=== PATIENT | female | born 1940 | race Caucasian/White ===

== ENCOUNTER 2016-10-01 20:34 | Inpatient (IN) | payer MEDICARE ==
[~2016-10-01] VITALS: Ht 167.6 cm; Wt 70.0 kg
--- NOTE | 2016-10-01 21:04 | ED.REPORT ---
HPI-General Illness Date of Service October 01, 2016 ED Provider: Dom Mascorro MD Pt is a 75 y.o. female who presents to the ED via EMS with rapid palpitations .EMS rhythm strips recorded episodes of A-fib with RVR in the 200's and short bradycardic episodes in the 30's. Pt was asymptomatic when she had rapid heart rate but during her bradycardic episodes she reports near syncope that she describes as "greying out" and hot flashes. Pt was seen at [place] ED on Tuesday ( 09/27) for chest pain, the source for her pain was not identified. Pt denies a hx of A-fib. Nursing Notes Stated Complaint: AFIB WITH RVR Nursing Notes Reviewed: Yes Allergies: Coded Allergies: No Known Allergies (Unverified , 10/01/16) Scheduled Aspirin (Aspirin) 325 Mg Tablet 325 MG PO PRN Cholecalciferol (Vitamin D3) (Vitamin D) 1,000 Unit Tablet Unknown Dose PO DAILY Cyanocobalamin (Vitamin B-12) (Vitamin B-12) 2,000 Mcg Tablet 2,000 MCG PO DAILY Ranitidine (Ranitidine) 75 Mg Tablet 150 MG PO DAILY General Time Seen by MD: 21:04 Chief Complaint Other (Rapid Palpitations) Hx Obtained From: Patient, EMS Arrived By: Ambulance Sudden in Onset?: Yes Onset Occurred: Just prior to arrival Symptom Duration: Since onset Severity: Current: No pain currently Severity: Maximum: No pain Past Medical History Past Medical History None reported Past Surgical History Reports: Appendectomy Social History Alcohol Use: "Social" Ambulatory Status Independent Review of Systems Hot flashes Tachycardia Bradycardia Full Review of Systems Cardiovascular: Reports: Palpitations (Rapid) Neurologic: Reports: Syncope (Near) Complete sys rev & neg: except as marked. Physical Exam Vital Signs Vital Signs Date Time Temp Pulse Resp B/P Pulse Ox O2 Delivery O2 Flow Rate FiO2 10/01/16 21:22 36.5 138 20 158/72 98 Room Air Initial VS: Reviewed Head / Eyes: Atraumatic, Normocephalic Abdomen / GI: No distention Extremities: Vascular intact, Neuro intact Skin: Warm, Dry, No cyanosis Neurologic: Alert, Oriented, Nonfocal Psychiatric: Mood/affect normal, Behavior normal, Normal thought content General/Constitutional: Awake, Alert, Well appearing, Well developed, Well hydrated, Well nourished, Not toxic appearing Respiratory / Chest: Atraumatic, Breath sounds NL, Breath sounds = bilat, No respiratory distress Heart Rate / Rhythm: Positive: Bradycardia (30's), Irreg irregular rhythm, Tachycardia (200's) Trace lower extremity edema Interpretation & Diagnostics Lab Results Interpretation Result Diagram: 10/02/16 0204 10/02/16 0204 Test 10/01/16 21:50 10/01/16 22:10 Erythrocyte Sedimentation Rate 41mm/hr (0-40) D-Dimer 1.02mg/L FEU (<0.50) Uric Acid 6.4mg/dL (2.6-7.2) Magnesium Level 2.1mg/dL (1.6-2.6) Total Bilirubin 0.4mg/dL (0.0-1.2) Aspartate Amino Transf (AST/SGOT) 18U/L (0-50) Alanine Aminotransferase (ALT/SGPT) 19U/L (0-32) Alkaline Phosphatase 95U/L (25-165) Troponin T 0.010ug/L (0.0-0.011) Pro-B-Type Natriuretic Peptide 612.4pg/mL (0-738) Total Protein 7.2g/dL (6.4-8.4) Albumin 3.8g/dL (3.4-5.0) Thyroid Stimulating Hormone (TSH) 1.780uIU/mL (0.450-4.500) Free Thyroxine 1.52ng/dL (0.82-1.77) Hold Bello Top Tube Received (Received) ECG Interpretation Time: 09:35 Interpreted by: ED physician Rhythm / Conduction: Atrial fib with RVR (rate of 141) Time: 09:37 Interpreted by: ED physician Abnormal Rate: 40 (46) Rhythm / Conduction: Atrial fibrillation (Slow) X-Ray Chest Interpretation Chest Xray Interpretation: IMPRESSION: Increased left basilar opacification system with pneumonia versus atelectasis. Small left-sided effusion. Dictated by: Marlin Allen MD, PhD on 10/01/2016 at 21:48 Approved by: Marlin Allen MD, PhD on 10/01/2016 at 21:49 Re-Eval/Medical Decision Med Decision/Clinical Course 75-year-old no prior cardiac history presents with rapid A. fib and then bradycardic A. fib episodes with pauses up to thirty seconds. These positive been progressive since she has been here, and she is on no current sounding drugs to suppress note function. We are unable to control her rapid rate in the 200s, given her tendency to severe bradycardia and pauses. Discussed with cardiology will see tonbrent. She was taken to the [facility] after a negative CT angiogram to exclude pulmonary embolus. A temporary pacer was placed. She is transported in critical condition first to the [facility] and thence to the CCU. Source of Hx: Old records Time of Eval: 21:14 Re-Evaluation/Progress Note: Discussed with pt need for admit and probable pacemaker insertion. Pt understands and agrees with plan. Consultation #1: Referral / Consult Name: Dio Phipps MD Consulted With: Cardiology Call Returned at: 21:15 Note: Consulted Dr. Phipps regarding pt condition, recommends admit. Does not recommend emergent pacemaker insertion. Consultation #2: Referral / Consult Name: Elvis Russell MD Consulted With: Hospitalist Call Returned at: 21:53 House Mover Helper: Accepts admit Note: Discussed pt condition and consult with Dr. Phipps. Accepts admit. Counseled Regarding: Diagnosis, Lab results, Need for follow-up, Need for admission Discharge & Departure Primary Impression: Sick sinus syndrome with tachycardia Additional Impression: Atrial fibrillation with RVR Disposition: ADMITTED TO HOSPITAL Discharge Condition All VS Reviewed: Yes Condition: Critical Crit Care Except Billable Proc Time Spent: 30-74 minutes (sixty minutes) Services Performed: Patient management by me, Time spent at bedside, Reviewing test results, Reviewing imaging, Discussing patient care, Documentation in record, Time with fam/surrogate Scribe Attestation Portions of this note were transcribed by Lucy Atkins. I, Dr. Mascorro personally performed the history, physical exam and medical decision-making; I reviewed and confirmed the accuracy of the information in the transcribed note. Signed by: Daniel Harrell, 10/01/16 and 223 Dom Mascorro MD October 01, 2016 21:04 LUCY ATKINS October 01, 2016 21:21
[2016-10-01 21:22] VITALS: BP 158/72; PULSE 138; RESP 20; O2SAT 98
--- NOTE | 2016-10-01 21:51 | DRSVH ---
PROCEDURE: X-RAY CHEST ONE VIEW, PORTABLE ([id number]) INDICATIONS: tachycardia TECHNIQUE: One view of the chest was acquired. COMPARISON: None. FINDINGS: Surgical changes and devices: None. Lungs and pleura: Small left-sided pleural fluid collection noted. Increased opacification of the l eft lung base which represent atelectasis versus pneumonia. Mediastinum: Mediastinal contours appear normal. Heart size is normal. Bones and chest wall: No suspicious bony lesions. Overlying soft tissues appear unremarkable. IMPRESSION: Increased left basilar opacification system with pneumonia versus atelectasis. Small le ft-sided effusion. Dictated by: Marlin Allen MD, PhD on 10/01/2016 at 21:48 Approved by: Marlin Allen MD, PhD on 10/01/2016 at 21:49
[2016-10-01 22:02] LABS: BASOPHILS % (AUTO) 0.2 % (0-3); EOSINOPHILS % (AUTO) 0.9 % (0-5); MONOCYTES % (AUTO) 9.3 % (4-12); Mean Corpuscular Hemoglobin 27.9 pg (27.0-35.0); Mean Corpuscular Volume 82.2 fL (81-100); NEUTROPHILS % (AUTO) 65.3 % (40-74); Platelet Count 325 bil/L (150-400)
[2016-10-01 22:25] LABS: ERYTHROCYTE SEDIMENTATION RATE 41 mm/hr (0-40)
[2016-10-01 22:29] LABS: TROPONIN T 0.01 ug/L (0.0-0.011)
[2016-10-01 22:47] LABS: Magnesium 2.1 mg/dL (1.6-2.6)
[2016-10-01] MEDS ORDERED: Alum-Mag Hydrox-Simeth 30 mL Suspension PO PRN (22:50)
[2016-10-01] MEDS ORDERED: Polyethylene Glycol (PEG) 17 Gm Powder PO PRN (22:50)
[2016-10-01] MEDS ORDERED: Ondansetron 2 mg/mL 2 mL Inj IVPUSH PRN (22:50)
[2016-10-01] MEDS ORDERED: Senna-Docusate 8.6-50 mg Tablet PO PRN (22:50)
[2016-10-01] MEDS ORDERED: Heparin 5,000 Units/500 mL NS Premix IV ONE (23:01)
[2016-10-01 23:02] VITALS: BP 164/76; PULSE 141; RESP 18; O2SAT 97
--- NOTE | 2016-10-01 23:47 | PCM.HPMED ---
Subjective Date of Service October 01, 2016 Primary Provider: Admitting Physician: Elvis Russell MD Primary Care Physician: Adal Arias MD Attending Physician: Elvis Russell MD Admit Status: From the Emergency Department, Critical Care Chief Complaint: Chest pain History of Present Illness: Pt is a 75 y.o. female who presents to the ED via EMS with rapid palpitations, onset this evening. EMS rhythm strips recorded episodes of A-fib with RVR in the 200's and short bradycardic episodes in the 30's. Pt was asymptomatic when she had rapid heart rate but during her bradycardic episodes she reports near syncope that she describes as "greying out" and hot flashes. Pt was seen at [facility] ED on Tuesday (09/27) for chest pain, the source for her pain was not identified. Patient states she has had occasional pain chest pain, which she attributed to her reflux symptoms. Patient denies hx of A-fib. In the ED vitals temperature 36.5 pulse 136 respiratory 20 blood pressure 158/ 72 98% on room air. D-dimer 1.02. All other labs within normal range. CXR showed some mild evidence of pneumonia with small left-sided effusion. ECG in ED showed atrial fibrillation with RVR at rate of 141, 2 minutes later atrial fibrillation with rate of 40. Patient relapsing into bradycardia every 2-3 mins. Patient was seen by Dr. Phipps the on-call academic administrator, patient to go to CT angiogram to rule out PE, then to the Room Attendant to receives temporary pacemaker tonight, with plans to replace it with permanent pacemaker on Tuesday. Patient admitted for further treatment and management. Review of Systems: GEN: Hot flashes Cardiovascular: Palpitations (Rapid), slow heart beat Neurologic: Reports: Syncope (Near) Complete sys rev & neg: except as marked. Allergies Coded Allergies: No Known Allergies (Unverified , 10/01/16) Home Medications Patient takes no prescribed medication at this time PMH None reported Surgical History Appendectomy Laparoscopic hysterectomy Family History Mother and father with diabetes Mother with congestive heart failure in her 80s Social History Occupation: retired Hx Alcohol Use: Yes (occasional) Hx Substance Use: No Living Arrangement: Alone Exam Vital Signs Vital Sign - Last Date Time Temp Pulse Resp B/P Pulse Ox O2 Delivery O2 Flow Rate FiO2 10/01/16 21:22 36.5 138 20 158/72 98 Room Air Exam GEN: Awake, alert, and in mild distress, well developed, well nourished, no respiratory distress HEENT: Atraumatic, Normocephalic, no sclera icterus, pale conjunctiva, moist mucous membranes Neck: Supple with full ROM, no JVD Respiratory: Breath sounds normal, Bibasilar crackles Cardiovascular: Irregular irregular tachycardic, with no murmurs, gallops or rubs appreciated Abdomen / GI: Soft, Non-tender Skin: Warm, Dry, and intact Neurologic: Alert, Oriented, Nonfocal Psychiatric: Mood/affect normal, Behavior normal, Normal thought content Extremity: No edema Lab and Diagnostics Result Diagram: 10/01/16 2150 X-Rays, CTs and MRIs Chest Xray Interpretation: IMPRESSION: Increased left basilar opacification system with pneumonia versus atelectasis. Small left-sided effusion. Dictated by: Marlin Allen MD, PhD on 10/01/2016 at 21:48 Approved by: Marlin Allen MD, PhD on 10/01/2016 at 21:49 12-lead ECG ECG Interpretation Time: 09:35 Interpreted by: ED physician Rhythm / Conduction: Atrial fib with RVR (rate of 141) Time: 09:37 Interpreted by: ED physician Abnormal Rate: 40 (46) Rhythm / Conduction: Atrial fibrillation (Slow) Assessment & Plan Pt is a 75 yo female with no significant past medical history, who presents to the ED via EMS with rapid palpitations, onset this evening. EMS rhythm strips recorded episodes of A-fib with RVR in the 200's and short bradycardic episodes in the 30's. Pt was asymptomatic when she had rapid heart rate but during her bradycardic episodes she reports near syncope that she describes as "greying out " and hot flashes. Chest pain, present on admission. Acute. - Most likely due to the new onset of A-fib with RVR and sick sinus syndrome with tachycardia, cannot rule out PE with slight elevation of D-dimer seen - CTA negative for Pulmonary embolism New onset sick sinus syndrome with tachycardia, present on admission. Acute, now resolved. - On telemetry - Nothing by mouth - Patient seen by Dr. Phipps in ED, temporary pacemaker to be placed tonight, with plans for replacement to pacemaker on Tuesday - Patient reverted back to sinus rhythm during CTA procedure, temporary pacemaker insertion postponed at this time - Echocardiogram ordered - appreciate cardiology time and expertise New onset atrial fibrillation with RVR, present on admission. Acute, now resolved. - CHADsvasc score of 2, heparin ggt started - Cardiology recommends esmolol if tachycardia worsens Elevated D-dimer, present on admission. Acute. - CTA pending Acetaminophen-fever/headache/mild/moderate pain Antiemetics, as needed Bowel regimen, as needed. Patient status: Patient was admitted under inpatient status with expected length of stay greater than two midnights due to severity of presenting symptoms , risk of adverse event, and complexity of treatment plan. Pain Evaluation: Adequate Pain Control GI Prophylaxis: Not indicated VTE Prophylaxis: Other (Heparin ggt) Resuscitation Status: CPR: Attempt Resuscitation Attending Statement The patient was seen and examined together with Dr. Osborne on 10/01 and I agree with the history, exam and plan as outlined in the note above. copies to: Adal Arias MD, Fumiko O DO October 01, 2016 22:45 Elvis Russell MD October 02, 2016 06:40
[2016-10-02] VITALS (15 sets, daily range): BP systolic 113–156; BP diastolic 48–100; PULSE 56–127; RESP 15–22; O2SAT 95–99
[2016-10-02 00:19] LABS: APPEARANCE,URINE CLEAR (CLEAR,HAZY); COLOR,URINE YELLOW (YELLOW); OCCULT BLOOD,URINE MODERATE (NEGATIVE); PH,URINE 5.5 (5.0-8.0); UROBILINOGEN,URINE NORMAL (NORMAL)
[2016-10-02] MEDS ORDERED: Heparin 5,000 Unit/mL Inj IVPUSH PRN (00:40)
[2016-10-02] MEDS ORDERED: Heparin 25,000 UNIT in 0.45% Sodium Chloride 475 ML IV SCH (01:00)
[2016-10-02] MEDS ORDERED: [UNRECOGNIZED DRUG - CODE] PO (01:16)
[2016-10-02] MEDS ORDERED: CHOL100043 PO (01:16)
[2016-10-02] MEDS ORDERED: ASPI325T32 PO (01:16)
[2016-10-02] MEDS ORDERED: RANI-426 PO (01:16)
[2016-10-02 02:20] LABS: BASOPHILS % (AUTO) 0.1 % (0-3); EOSINOPHILS % (AUTO) 0.5 % (0-5); Mean Corpuscular Hemoglobin 28.3 pg (27.0-35.0); Mean Corpuscular Volume 83.1 fL (81-100); NEUTROPHILS % (AUTO) 77.5 % (40-74); Platelet Count 316 bil/L (150-400)
[2016-10-02] MEDS ORDERED: Heparin 5,000 Unit/mL Inj SUBQ ONE (02:40)
--- NOTE | 2016-10-02 04:32 | NUR ---
Admit Pt arrived to CCU 2010 around 0015. 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 Pt converted to Normal SR on own and no temporary pacer was placed. Per Dr. Phipps, pt is to be on bedrest for the night. Pt is A&Ox3 and able to KAUR, MED REC and admit completed. Pt will be NPO for the night. Heparin gtt started at 1000 u/hr per cardiac protocol. Pt has pacer pads on in case she returns to sick sinus. VSS and Tele SR with PAC's in the 60's to 80's.
--- NOTE | 2016-10-02 07:19 | CONS ---
[address] [address] CONSULTATION REPORT PATIENT: EDIE BRUNSON : 1940 MR#: [id number] ADMIT: 10/01/2016 JOB ID: [id number] DATE OF SERVICE: 10/02/2016 CARDIOLOGY CONSULTATION: REQUESTING PHYSICIAN: Dr. Dom Mascorro. REASON FOR CONSULTATION: Pauses and rapid heart rate. PROBLEM LIST: 1. Rapid atrial flutter punctuated by significant conversion pauses lasting up to 8 seconds (reason for current hospitalization). 2. Presentation to the ED with chest pain earlier in the week with etiology not yet defined. 3. Possible left lower lobe infiltrate. HOME MEDICATIONS: None. IDENTIFICATION AND HISTORY OF PRESENT ILLNESS: The patient is a pleasant 75-year-old woman without significant cardiac or other medical history who was in her usual state of health until this Tuesday when she awoke with left-sided chest discomfort that was severe enough to cause her to go to the ED. There, she was kept for 5 hours, and workup was unremarkable. She was discharged home and today, she began to experience episodic lightheadedness and near syncope without ty syncope. She presented to the ED and was found to be in rapid atrial flutter punctuated by long conversion pauses up to 8 seconds. I was therefore asked to come in to discuss a temporary pacing wire with her. Workup by laboratories has been unremarkable with the exception of an elevated ESR of 41 and an elevated D-dimer at 1.02. Her renal function is normal, and her troponin is negative. Her EKG shows rapid atrial flutter and again, one EKG shows a junctional bradycardia. Telemetry reveals multiple pauses that are conversion pauses terminating in a junctional escape and ultimately reverting back to atrial flutter. IMPRESSION AND RECOMMENDATION: The patient is a pleasant 75-year-old woman with unknown cardiac history who comes in with rapid atrial flutter punctuated by long conversion pauses associated with near syncope. I am concerned about her chest pain earlier in the week and now, her atrial dysrhythmia. Perhaps, with an elevated D-dimer, she has a pulmonary embolus. I have ordered a CT PE protocol to rule out PE. She does not have a clear predisposing factors to pulmonary emboli. In regard to her long pauses, I discussed at length with her pacing therapy including a temporary transvenous pacing wire, as well as permanent pacemaker implant. We are constricted in the initiation of antiarrhythmics or AV ole blocking agents due to her significant prolonged pauses. I therefore recommended a transvenous pacing wire with ultimate placement of a permanent pacemaker system. In transit to the catheterization laboratory, she reverted back to a normal sinus rhythm with a heart rate in the 80s. I therefore decided to abort the temporary pacing wire and to monitor her while we work her up further including an echocardiogram and obtaining results of her CT scan. She is agreeable to this plan. If she reverts back to atrial fibrillation or if she has prolonged pauses, then I would be happy to come back in for a transvenous pacing wire. She will need a dual-chamber pacemaker system prior to her departure from the hospital, so that we may start medications for her atrial fibrillation and flutter. TIME SPENT: I spent over 1 hour with this patient coordinating her care and reviewing her chart. Greater than 50% of this time was spent in counseling. Thank you very much for much for allowing me to participate in the care of this patient. Please call with any questions.
--- NOTE | 2016-10-02 08:36 | DRSVH ---
PROCEDURE: CT ANGIO CHEST PULMONARY EMBOLISM ([id number]) INDICATIONS: CHEST PAIN, AFIB WITH RVR TECHNIQUE: After the administration of intravenous contrast, 2 mm thick sections acquired from the pulmonary api jhon to the posterior costophrenic angles. 3-dimensional maximum intensity projection (MIP) coronal a nd sagittal reformats were then acquired through the thorax. For radiation dose reduction, the follo wing was used: automated exposure control, adjustment of mA and/or kV according to patient size. COMPARISON: None. FINDINGS: Image quality: Excellent. Pulmonary arteries: Pulmonary arteries are normal in size, and demonstrate no intraluminal filling d efects to suggest central pulmonary embolism. Lungs and pleura: Mild left pleural effusion. Mediastinum: Heart size is normal, with small pericardial effusion. No mediastinal or hilar adenopa thy. Thoracic aorta is normal in caliber and enhancement. Esophagus is normal in caliber, without h iatal hernia. Bones and chest wall: No suspicious bony lesions. Ribs and thoracic spine appear intact throughout. Thyroid gland is unremarkable. No axillary or supraclavicular adenopathy. Abdomen: Visualized upper abdominal solid organs appear normal in the early arterial phase of enhanc ement. IMPRESSION: 1. No visualized pulmonary embolism. 2. Mild left pleural effusion. 3. Small pericardial effusion. Dictated by: Argenis Bowen M.D. on 10/02/2016 at 8:32 Approved by: Argenis Bowen M.D. on 10/02/2016 at 8:34
[2016-10-02] MEDS ORDERED: 0.9% Sodium Chloride 1,000 ML IV ONE (12:03)
[2016-10-02] MEDS ORDERED: Heparin 5,000 Units/500 mL NS Premix IV ONE (12:26)
--- NOTE | 2016-10-02 12:37 | PCM.PNCARD ---
Subjective Date of service October 02, 2016 Chief Complaint Near syncope History of Present Illness This is a pleasant 75 y/o female with newly diagnosed and severe tachybrady syndrome. She was admitted last night and noted to have significant conversion pauses and goes back into rapid atrial flutter. She almost proceeded with transvenous pacer but she converted back to sinus rhythm and so the procedure was aborted. However this morning after breakfast she has developed many episodes of rapid aflutter with significant conversion pauses. She is symptomatic during these episodes. She was reluctant about proceeding with pacemaker but after I had a long discussion with this morning she has agreed with proceeding with TV pacer. Constitutional: Denies: Chills, Fever ENT: Denies: Ear Discharge, Ear Pain Cardiovascular: Reports: Chest Pain, Irregular Heart Rate, Palpitations Respiratory: Denies: Cough Gastrointestinal: Denies: Abdominal Pain, Blood in stool (red) Neurological: Denies: Change in LOC, Confusion Endocrine: Reports: Blood Glucose Review Exam Vital Signs Vital Sign - Last Date Time Temp Pulse Resp B/P Pulse Ox O2 Delivery O2 Flow Rate FiO2 10/02/16 08:15 36.6 56 19 125/54 96 Room Air Intake and Output 10/01/16 10/01/16 10/02/16 Cumulative From/Thru 15:00 23:00 07:00 10/01/16 21:22 - 10/02/16 06:50 Intake Total 85 ml 85 ml Balance 85 ml 85 ml Intake IV Total 85 ml 85 ml General: Pleasant Cooperative Skin: Warm & dry to touch Head: Normocephalic Eye: EOMS intact Ears, Nose & Throat: Ears no gross abnormalities Nose no gross abnormalities Neck: No bruits Chest: Clear auscultation w/o rales/wheeze Cardiac: Normal non-displaced apical impulse Pulses: Pulses full/equal all extremities Abdomen: Soft, non-distended, non-tender Extremities: Warm w/o deformities,erythema noted Neurological: Alert & oriented Psychological: Affect & interaction appropriate Lab and Diagnostics Labs CBC Test 10/01/16 21:50 10/02/16 02:04 Erythrocyte Sedimentation Rate 41mm/hr (0-40) White Blood Count 8.3th/mm3 (3.8-10.1) Red Blood Count 4.31mil/mm3 (3.90-5.20) Hemoglobin 12.2g/dL (12.0-15.6) Hematocrit 35.8% (35.0-46.0) Mean Corpuscular Volume 83.1fL (81-100) Mean Corpuscular Hemoglobin 28.3pg (27.0-35.0) Mean Corpuscular Hemoglobin Concent 34.1% (32.0-37.0) Red Cell Distribution Width 13.3% (12.3-15.4) Platelet Count 316bil/L (150-400) Neutrophils (%) (Auto) 77.5% (40-74) Lymphocytes (%) (Auto) 13.8% (14-46) Monocytes (%) (Auto) 8.0% (4-12) Eosinophils (%) (Auto) 0.5% (0-5) Basophils (%) (Auto) 0.1% (0-3) CMP Test 10/01/16 21:50 10/02/16 02:04 Uric Acid 6.4mg/dL Magnesium Level 2.1mg/dL Total Bilirubin 0.4mg/dL Aspartate Amino Transf (AST/SGOT) 18U/L Alanine Aminotransferase (ALT/SGPT) 19U/L Alkaline Phosphatase 95U/L Troponin T 0.010ug/L Pro-B-Type Natriuretic Peptide 612.4pg/mL Total Protein 7.2g/dL Albumin 3.8g/dL Thyroid Stimulating Hormone (TSH) 1.780uIU/mL Free Thyroxine 1.52ng/dL Hold Bello Top Tube Received Sodium Level 138mEq/L Potassium Level 3.9mEq/L Chloride Level 103mEq/L Carbon Dioxide Level 20mmol/L Blood Urea Nitrogen 13mg/dL Creatinine 0.69mg/dL Estimat Glomerular Filtration Rate 119mL/min Glucose Level 140mg/dL Calcium Level 9.1mg/dL Result Diagram: 10/02/164 10/02/16203 X-Rays, CTs and MRIs Date of Service: 10/01/16 1195 PROCEDURE: CT ANGIO CHEST PULMONARY EMBOLISM ([id number]) INDICATIONS: CHEST PAIN, AFIB WITH RVR TECHNIQUE: After the administration of intravenous contrast, 2 mm thick sections acquired from the pulmonary apices to the posterior costophrenic angles. 3-dimensional maximum intensity projection (MIP) coronal and sagittal reformats were then acquired through the thorax. For radiation dose reduction, the following was used: automated exposure control, adjustment of mA and/or kV according to patient size. COMPARISON: None. FINDINGS: Image quality: Excellent. Pulmonary arteries: Pulmonary arteries are normal in size, and demonstrate no intraluminal filling defects to suggest central pulmonary embolism. Lungs and pleura: Mild left pleural effusion. Mediastinum: Heart size is normal, with small pericardial effusion. No mediastinal or hilar adenopathy. Thoracic aorta is normal in caliber and enhancement. Esophagus is normal in caliber, without hiatal hernia. Bones and chest wall: No suspicious bony lesions. Ribs and thoracic spine appear intact throughout. Thyroid gland is unremarkable. No axillary or supraclavicular adenopathy. Abdomen: Visualized upper abdominal solid organs appear normal in the early arterial phase of enhancement. IMPRESSION: 1. No visualized pulmonary embolism. 2. Mild left pleural effusion. 3. Small pericardial effusion. Assessment & Plan Problems: (1) Sick sinus syndrome with tachycardia Plan: Severe with near syncope. She is having recurrent and severe conversion pauses. She has agree to proceed with TV pacer. Once she has TV pacer and if we have excellent capture then will consider BB or CCB. She will need to proceed with PPM early next week which she has agreed to as well. Dr. Phipps will discuss with her more on this subject. Echo is still pending. Status: Acute ICD Code: I49.5 (2) Atrial fibrillation with RVR Status: Acute ICD Code: I48.91 Pain Evaluation: Adequate Pain Control GI Prophylaxis: Not indicated VTE Prophylaxis: Other (Heparin ggt) Resuscitation Status: CPR: Attempt Resuscitation Time spent Critical care time 45 minutes Junior Geronimo MD October 02, 2016 12:37
[2016-10-02] MEDS ORDERED: fentaNYL-PF 50 mCg/mL 2 mL Inj ONE (12:47)
--- NOTE | 2016-10-02 13:56 | PCM.PROC ---
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 Post Procedure Diagnosis: Severe tachybrady syndrome Procedure: Temporary pacemaker wire insertion Provider and Tooth Grinder: Junior Geronimo JR, M.D. Indication for Procedure: Teresa Procedural Analgesia: See procedure log Procedure Details: The patient arrived to catheterization laboratory. The patient has been nothing by mouth for 4 hours. The patient was sterilized and draped in the appropriate fashion for a right internal jugular approach. Timeout was taken. Ultrasound was used for guidance. Patient was given local anesthetic to the right internal jugular region with lidocaine 1%. Percutaneous stick with a slip tip syringe was performed with a micropuncture kit. A micropuncture sheath was inserted into the right internal jugular vein. A micropuncture sheath was exchanged for 5 [place] Island[place] 10 cm sheath. The temporary pacemaker was inserted and was placed in asynchronous mode at 100 bpm. Loss of capture was at 0.5 mA. The temporalry pacemaker was set at 2 mA, 60 pacing per minute, and asynchronous mode. The sheath was sewed in and fluoroscopy was taken of right lung field to rule out pneumothorax. There were no immediate complications. Post Procedure Plan: Return to CCU and patient will be planned for permanent pacemaker early next week. Junior Geronimo MD October 02, 2016 13:56
--- NOTE | 2016-10-02 13:59 | NUR ---
Social Work: Attempted Assessment D: ROOF SHINGLER attempted to meet with patient at bedside. Pt just returned from a temporary cath placement and is requesting ROOF SHINGLER return tomorrow to complete assessment. ROOF SHINGLER agreed. A: Pt who is in CCU status at this time. P: ROOF SHINGLER to follow up with pt tomorrow to complete initial assessment. ROOF SHINGLER to continue to follow. FOREST Reeves
--- NOTE | 2016-10-02 14:40 | NUR ---
Heart rate pauses/pacemaker Patient remained in SR/SB 50s to 60s this morning until about 10:50 when patient converted to a-fib with RVR and with intermittent 3-6 second pauses. Attending MD and attending cardiologists were made aware about his change. Patient denied having any chest pain or shortness of breath. Patient did not pass out during the pauses however she did temporally close her eyes and describe her having a sensation "like a hot flush coming on". She was able to answers questions during the episodes. Patient agreed to a temporary pacemaker placement and was taken to the laboratory scientist for trans-venous temporary pacemaker placement at 1240. Patient returned to her room at 1345 with temporary right upper neck pacemaker placement with her heart rate in mid 70s. Patient denied having any discomfort and vital remain stable.
[2016-10-02] MEDS: Sodium Chloride LOK Flush 10 mL Syringe IVFLUSH SCH (15:53)
--- NOTE | 2016-10-02 16:37 | PCM.PNMED ---
Subjective Date of Service October 02, 2016 Subjective Pt is a 75 y.o. female who presents to the ED via EMS with rapid palpitations, onset this evening. EMS rhythm strips recorded episodes of A-fib with RVR in the 200's and short bradycardic episodes in the 30's. Today is hospital day 1. This morning, she does not have chest pain, dyspnea, palpitations, fever, chills , or leg edema. However, after an episode of pauses, she will feel lightheaded. Exam Vital Signs Vital Sign - Last Date Time Temp Pulse Resp B/P Pulse Ox O2 Delivery O2 Flow Rate FiO2 10/02/16 14:00 75 15 132/63 96 Room Air 10/02/16 11:52 36.8 Intake and Output 10/01/16 10/01/16 10/02/16 Cumulative From/Thru 15:00 23:00 07:00 10/01/16 21:22 - 10/02/16 06:50 Intake Total 85 ml 85 ml Balance 85 ml 85 ml Intake IV Total 85 ml 85 ml Exam GEN: Awake, alert, and in no acute distress, well developed, well nourished HEENT: Atraumatic, Normocephalic, no sclera icterus, pale conjunctiva, moist mucous membranes Neck: Supple with full ROM, no JVD Respiratory: Breath sounds normal, Bibasilar crackles Cardiovascular: Regular rate and rhythm at time of exam, with no murmurs, gallops or rubs appreciated Abdomen / GI: Soft, Non-tender Skin: Warm, Dry, and intact Neurologic: Alert, Oriented, Nonfocal Psychiatric: Mood/affect normal, Behavior normal, Normal thought content Extremity: No edema IVs and Medications Medications Reviewed: Medications were reviewed in detail Lab and Diagnostics Result Diagram: 10/02/1620310/02/16203 X-Rays, CTs and MRIs Chest Xray Interpretation: IMPRESSION: Increased left basilar opacification system with pneumonia versus atelectasis. Small left-sided effusion. Dictated by: Marlin Allen MD, PhD on 10/01/2016 at 21:48 Approved by: Marlin Allen MD, PhD on 10/01/2016 at 21:49 PROCEDURE: CT ANGIO CHEST PULMONARY EMBOLISM IMPRESSION: 1. No visualized pulmonary embolism. 2. Mild left pleural effusion. 3. Small pericardial effusion. Approved by: Argenis Bowen M.D. on 10/02/2016 at 8:34 12-lead ECG ECG Interpretation Time: 09:35 Interpreted by: ED physician Rhythm / Conduction: Atrial fib with RVR (rate of 141) Time: 09:37 Interpreted by: ED physician Abnormal Rate: 40 (46) Rhythm / Conduction: Atrial fibrillation (Slow) Assessment & Plan Pt is a 75 yo female with no significant past medical history, who presents to the ED via EMS with rapid palpitations, onset this evening. EMS rhythm strips recorded episodes of A-fib with RVR in the 200's and short bradycardic episodes in the 30's. Pt was asymptomatic when she had rapid heart rate but during her bradycardic episodes she reports near syncope that she describes as "greying out " and hot flashes. New onset sick sinus syndrome with tachycardia, present on admission. Acute. - Patient seen by Dr. Phipps in ED, temporary pacemaker was going to be placed but then pt spontaneously converted to normal sinus rhythm night of 10/01/16 - Pt then returned to intermittently pauses and atrial fibrillation so patient had temporary pacemaker placed on 10/02/16 afternoon - Plans for replacement to pacemaker next week, possibly on Tuesday - Patient reverted back to sinus rhythm during CTA procedure, temporary pacemaker insertion postponed at this time - Echocardiogram ordered - Appreciate cardiology time and expertise - Monitor on telemetry - Patient will need to be NPO after midnight for Elvin morning New onset atrial fibrillation with RVR, present on admission. Acute. - CHADsvasc score of 2, heparin ggt started - Cardiology recommends esmolol if tachycardia worsens - Will need to discuss chronic anticoagulation with patient after pacemaker is placed Chest pain, present on admission. Acute, resolved. - Most likely due to the new onset of A-fib with RVR and sick sinus syndrome with tachycardia, and mild left pleural effusion - Pt is afebrile and does not have an elevated WBC. - CTA as above showed mild left pleural effusion and small pericardial effusion but negative for PE - Continue to monitor Chronic gastroesophageal reflux disease, stable. - Replaced home ranitidine with famotidine Elevated D-dimer, present on admission. Acute. - CTA negative for PE Acetaminophen-fever/headache/mild/moderate pain Antiemetics, as needed Bowel regimen, as needed. Pain Evaluation: Adequate Pain Control GI Prophylaxis: Not indicated VTE Prophylaxis: Other (Heparin ggt) Resuscitation Status: CPR: Attempt Resuscitation Attending Statement The patient was seen and examined together with Dr. Chau on 10/02/2016 and I agree with the history, exam and plan as outlined in the note above. . Maren Chau DO October 02, 2016 14:35 Carlos Garland MD October 02, 2016 17:11
--- NOTE | 2016-10-02 18:57 | DRSVH ---
[facility] [address] [place] [address] Echocardiogram Report Name: EDIE BRUNSON te: 10/02/2016 Mariam ght: 67 in Hospital Exam Location: [facility] ght: 159 lb Gender: Other BSA : 1.8 m2 : 1940 Age: 75 yrs BP: 143/62 mmHg Reason For Study: NEW A-FIB., S/P TEMP PACEMAKER Ordering Physician: HOSPITALIST [facility] Performed By: Latoya Tony Referring Physician: DR. Quintin HOOVER, DR. Sarahy KYLE Interpretation Summary Left ventricular wall thickness is at the upper limits of normal. Left ventricular systolic function is normal. The ejection fraction is estimated to be 65-70%. There are no focal wall motion abnormalities. Assessment of diastolic parameters indicates a relaxation abnormality of the left ventricle, consistent with normal filling pressures. The right ventricle is normal in size and function. There is a pacemaker lead in the right ventricle. The right ventricular systolic pressure is estimated at 28 mmHg assuming a right atrial pressure of 3 mm Hg. The left atrium is mildly dilated. Right atrial size is normal. There is mild to moderate tricuspid regurgitation. There is no other significant valvular heart disease. The aortic root is normal size. Procedure: A two-dimensional transthoracic echocardiogram with color flow and Doppler was performed. The study quality was technically adequate. There is no prior echocardiogram noted for this patient. Left Ventricle: The left ventricle is normal in size. Left ventricular wall thickness is at the upper limits of normal. Left ventricular systolic function is normal. The ejection fraction is estimated to be 65-70%. There are no focal wall motion abnormalities. Assessment of diastolic parameters indicates a relaxation abnormality of the left ventricle, consistent with normal filling pressures. Right Ventricle: The right ventricle is normal in size and function. There is a pacemaker lead in the right ventricle. Atria: The left atrium is mildly dilated. Right atrial size is normal. There is no Doppler evidence for an atrial septal defect. Mitral Valve: The mitral valve leaflets appear normal. There is no evidence of stenosis, fluttering, or prolapse. There is mild mitral annular calcification. There is trace mitral regurgitation. Aortic Valve: The aortic valve is trileaflet. The aortic valve opens well. No aortic regurgitation is present. Tricuspid Valve: The tricuspid valve leaflets are thin and pliable. There is mild to moderate tricuspid regurgitation. The right ventricular systolic pressure is estimated at 28 mmHg assuming a right atrial pressure of 3 mm Hg. Pulmonic Valve: The pulmonic valve is not well visualized. There is a trace or physiologic amount of pulmonic regurgitation. There is no other significant valvular heart disease. Great Vessels: The aortic root is normal size. The dimensions of the ascending aorta are normal. The pulmonary artery is normal size. The IVC is dilated (diameter is greater than 2.1 cm) yet it collapses greater than 50% with a sniff. This suggests a right atrial pressure of 8 mm Hg. Pericardium/ Pleura There is no pericardial effusion. There is an anterior echo-free space consistent with a fat pad. MMode/2D Measurements & Calculations LVIDd: 3.7 cm LA dimension: 4.0 cm RA long axis LVOT diam LVIDs: 2.6 cm FS: 28.8 % LA A2 area: 23.5 cm RA area AoV Opening EPSS: 0.31 cm LA A4 area: 18.1 cm IVSd: 1.1 cm LA length (vol): 5.4 cm: 17.1 cm Ao root diam LVPWd: 0.96 cm LA vol: 67.4 ml RA vol LA vol index : 49.6 ml asc Aorta RA Diam: 2.9 cm : 27.3 mm2 IVC diam: 2.2 cm LV cohen. diameter/BSA LV sys. diameter/BSA RVD2 (mid) (cm/m^2): 2.0 (cm/m^2): 1.5 : 3.3 cm Doppler Measurements & Calculations Ao V2 max MV E max yousif MV E/A: 0.86 TR max yousif : 143.9 cm/sec : 80.5 cm/sec Med Peak E' Yousif : 249.9 cm/sec Ao max PG MV A max yousif TR max PG : 8.3 mmHg : 93.9 cm/sec E/E' med: 13.0 : 25.0 mmHg Ao mean PG MV P1/2t: 66.8 msec Lat Peak E' Yousif PA V2 max : 91.4 cm/sec LVOT Max Yousif E/E' lat: 11.9 PA mean PG : 100.7 cm/sec E/e' average: 12.5 Pulm A Revs Dur PA Accel Time RUBIA(I,D): 2.3 cm : 0.06 sec sev ratio MV A dur: 0.15 sec MV dec time MV P1/2t max yousif Ao V2 mean LV V1 max PG : 0.22 sec : 110.0 cm/sec MVA(P1/2t): 3.3 cm2 Ao V2 VTI: 34.1 cm LV V1 VTI RUBIA(V,D): 2.3 cm2 : 23.6 cm PA V2 mean RUBIA indexed to BSA Pulm A Revs Dur - MV A : 71.1 cm/sec (cm^2/m^2): 1.2 Dur: 0.00 msec Reading Physician:THAO
[2016-10-02] MEDS: Heparin 5,000 Unit/mL Inj SUBQ SCH (20:52)
[2016-10-03] MEDS: Sodium Chloride LOK Flush 10 mL Syringe IVFLUSH SCH ×3 (00:20→17:08)
[2016-10-03 00:30] VITALS: BP 148/62; PULSE 85; RESP 18; O2SAT 96
[2016-10-03] MEDS: Heparin 5,000 Unit/mL Inj SUBQ SCH ×3 (00:30→17:09)
[2016-10-03 03:39] LABS: Mean Corpuscular Hemoglobin 28.2 pg (27.0-35.0); Mean Corpuscular Volume 83.7 fL (81-100)
[2016-10-03 04:30] VITALS: BP 146/81; PULSE 81; RESP 16; O2SAT 97
--- NOTE | 2016-10-03 06:36 | NUR ---
Pt slept most of the night. No complaints of chest pain. Pacer wires to right IJ. Pt continues with intrensic and paced beats. Short runs of tachycardia with rate in the 120's but did not sustain. Pt is a/o, able to make needs known. Corona cath dc's without difficulty, pt still due to void.
--- NOTE | 2016-10-03 06:42 | PCM.PNMED ---
Subjective Date of Service October 03, 2016 Subjective Hosp day 2. No events overnight. Pt frustrated with not being able to move much (d/t temp pacer), and notes chronic diarrhea/abd discomfort. ROS otherwise negative. Exam Vital Signs Vital Sign - Last Date Time Temp Pulse Resp B/P Pulse Ox O2 Delivery O2 Flow Rate FiO2 10/03/16 04:30 Supplement Oxygen 10/03/16 04:30 36.8 81 16 146/81 97 Intake and Output 10/02/16 10/02/16 10/03/16 Cumulative From/Thru 15:00 23:00 07:00 10/01/16 21:22 - 10/03/16 06:28 Intake Total 1213 ml 1420 ml 2718 ml Output Total 600 ml 1100 ml 2100 ml 3800 ml Balance -600 ml 113 ml -680 ml -1082 ml Intake Oral 650 ml 720 ml 1370 ml IV Total 563 ml 700 ml 1348 ml Output Urine Total 600 ml 1100 ml 2100 ml 3800 ml # Bowel Movements 1 1 Exam GEN: Awake, alert, and in no acute distress, well developed, well nourished HEENT: Atraumatic, Normocephalic, no sclera icterus, pale conjunctiva, moist mucous membranes Neck: Supple with full ROM, no JVD. Temp pacer in R IJ with dressing c/d/i Respiratory: Breath sounds normal, minimal Bibasilar crackles Cardiovascular: Irregular rate and rhythm on monitor at time of exam, with no murmurs, gallops or rubs appreciated Abdomen / GI: Soft, Non-tender Skin: Warm, Dry, and intact Neurologic: Alert, Oriented, Nonfocal Psychiatric: Mood/affect normal, Behavior normal, Normal thought content Extremity: No edema IVs and Medications Medications Reviewed: Medications were reviewed in detail Lab and Diagnostics Result Diagram: 10/03/16 0250 10/03/16 0250 X-Rays, CTs and MRIs Chest Xray Interpretation: IMPRESSION: Increased left basilar opacification system with pneumonia versus atelectasis. Small left-sided effusion. Dictated by: Marlin Allen MD, PhD on 10/01/2016 at 21:48 Approved by: Marlin Allen MD, PhD on 10/01/2016 at 21:49 PROCEDURE: CT ANGIO CHEST PULMONARY EMBOLISM IMPRESSION: 1. No visualized pulmonary embolism. 2. Mild left pleural effusion. 3. Small pericardial effusion. Approved by: Argenis Bowen M.D. on 10/02/2016 at 8:34 12-lead ECG ECG Interpretation Time: 09:35 Interpreted by: ED physician Rhythm / Conduction: Atrial fib with RVR (rate of 141) Time: 09:37 Interpreted by: ED physician Abnormal Rate: 40 (46) Rhythm / Conduction: Atrial fibrillation (Slow) Assessment & Plan Pt is a 75 yo female with no significant past medical history, who presents to the ED via EMS with rapid palpitations, onset this evening. EMS rhythm strips recorded episodes of A-fib with RVR in the 200's and short bradycardic episodes in the 30's. Pt was asymptomatic when she had rapid heart rate but during her bradycardic episodes she reports near syncope that she describes as "greying out " and hot flashes. Hospital day 2. Chest pain, present on admission. Acute. - Most likely due to the new onset of A-fib with RVR and sick sinus syndrome with tachycardia - CTA negative for Pulmonary embolism New onset sick sinus syndrome with tachycardia, present on admission. Acute, now resolved. - On telemetry - Nothing by mouth - Patient seen by Dr. Phipps in ED, temporary pacemaker placed, with plans for replacement to pacemaker on Tuesday - Patient reverted back to sinus rhythm during CTA procedure, temporary pacemaker insertion postponed at this time - Echocardiogram ordered - appreciate cardiology time and expertise New onset atrial fibrillation with RVR, present on admission. Acute, now resolved. - CHADsvasc score of 2, heparin ggt started with intention to initiate Eliquis for ongoing anticoagulation - Cardiology recommends esmolol if tachycardia worsens Elevated D-dimer, present on admission. Acute. - CTA negative Acetaminophen-fever/headache/mild/moderate pain Antiemetics, as needed Bowel regimen, as needed. Patient status: Patient was admitted under inpatient status with expected length of stay greater than two midnights due to severity of presenting symptoms , risk of adverse event, and complexity of treatment plan. Anticipate discharge in 1-2 days. Pain Evaluation: Adequate Pain Control GI Prophylaxis: Not indicated VTE Prophylaxis: Other (Heparin ggt) Resuscitation Status: CPR: Attempt Resuscitation Attending Statement The patient was seen and examined together with Dr. Pickett on 10/03/2016 and I agree with the history, exam and plan as outlined in the note above. . Alberto Hurt DO October 03, 2016 06:42 Carlos Garland MD October 04, 2016 15:00
[2016-10-03 07:53] VITALS: BP 167/77; PULSE 78; O2SAT 97
[2016-10-03 12:07] VITALS: BP 137/67; PULSE 81; RESP 16; O2SAT 99
--- NOTE | 2016-10-03 14:34 | NUR ---
Social Work: Initial Assessment D: Per EMR review, pt is a 75 year old female admitted for sick sinus syndrome, rapid afib. Pt is [facility] with Medicare; pt has no LTC insurance or VA benefits. PCP is Adal Arias MD. NOK Is Casandra Lee, dtr, . Advanced directives completed- not on file, RIVET THROWER requested copy for patients chart. Readmit score is low 1. RIVET THROWER met with patient and granddaughter at bedside. Sw role explained and contact info provided. See initial assessment. Pt lives in [place], alone in a single story home with 3 steps to enter. Pt is I with ADLs and does not use DME. Pt has never had HH or skilled rehab and continues to drive. Pt identifies no discharge needs at this time. Pt is scheduled for a pacer placement on Tuesday. A: Pt who is I at baseline. P: Evolving; Anticipate patient to discharge home when medically stable; RIVET THROWER to continue to follow patient's clinical progress and assist with discharge planning as ordered by FOREST Nguyễn Addendum: 10/03/16 at 1446 by PARUL HENLEY Amended: Links added.
[2016-10-03 16:11] VITALS: BP 157/72; PULSE 70; RESP 16; O2SAT 98
--- NOTE | 2016-10-03 16:25 | NUR ---
Note Patient denied having any pain or discomfort today. Heart rate 70s-90s with some sinus beats with P-wave and narrow QRS and paced beats occasional PVC. Temporary pacemaker insertion site remained WNL. Patient up independent to a chair of bedside commode and tolerated the activity well. Verbal and written education regarding pacemaker implant procedure was offered to the patient and patient appeared to be accepting and eager to learn. Patient remained on CCU monitoring- continue assessment.
[2016-10-03 20:00] VITALS: BP 163/62; PULSE 84; RESP 18; O2SAT 97
[2016-10-04] VITALS (17 sets, daily range): BP systolic 133–167; BP diastolic 58–91; PULSE 60–75; RESP 14–22; O2SAT 96–98
[2016-10-04] MEDS: Sodium Chloride LOK Flush 10 mL Syringe IVFLUSH SCH ×3 (00:03→16:47)
[2016-10-04] MEDS: Heparin 5,000 Unit/mL Inj SUBQ SCH ×2 (00:03→08:30)
--- NOTE | 2016-10-04 01:27 | NUR ---
P) Cardiac Pt. alert and oriented, denies pain, cardiac rhythm variable, frequently paced but pacer does not always sense intrinsic beats and spikes appearing in T-wave on occasion, rate is generally in the 60's. Pt. is asymptomatic. I) Continue to monitor, notify cardiology if misplaced pacer spikes increase in frequency. E) Pt. resting quietly with eyes closed.
--- NOTE | 2016-10-04 09:08 | NUR ---
Cardiac/pacemaker sensitivity Temporary pacemaker site secure, dressing c/d/i. Pacemaker settings: rate 60, sensitivity off, mA 2. V-paced/SR per senior strategy manager. Pacer at times not sensing pt intrinsic beats, spikes occasionally falling on QRS and T-waves. Pt asymptomatic. Cardiology notified, no new orders at this time. Will continue to monitor.
[2016-10-04] MEDS ORDERED: Vancomycin 1,000 mg Inj ONE (10:14)
[2016-10-04] MEDS ORDERED: Water for Injection 50 ML IV ONE (10:14)
[2016-10-04] MEDS ORDERED: Bupivacaine-MPF 0.5% 30 mL Inj ONE (10:14)
[2016-10-04] MEDS ORDERED: 0.9% Sodium Chloride 1,000 ML ONE (10:14)
[2016-10-04] MEDS ORDERED: 0.9% Sodium Chloride 250 ML ONE (10:14)
[2016-10-04] MEDS ORDERED: Heparin 10,000 Unit/1,000 mL NS Premix IV ONE (10:15)
--- NOTE | 2016-10-04 10:34 | NUR ---
To cathode builder Pt to cathode builder for permanent pacemaker insertion.
[2016-10-04] MEDS: Vancomycin 1,000mg/200 mL NS IV ONE (10:43)
[2016-10-04] MEDS ORDERED: fentaNYL-PF 50 mCg/mL 2 mL Inj ONE (10:44)
[2016-10-04] MEDS: 0.9% Sodium Chloride 1,000 ML IV SCH ×2 (12:13→22:13)
[2016-10-04] MEDS ORDERED: HYDROcodone-APAP 5-325 mg Tablet PO PRN (12:15)
--- NOTE | 2016-10-04 13:18 | PCM.PNMED ---
Subjective Date of Service October 04, 2016 Subjective Pt is a 75 y.o. female who presents to the ED via EMS with rapid palpitations, onset this evening. EMS rhythm strips recorded episodes of A-fib with RVR in the 200's and short bradycardic episodes in the 30's. Today is hospital day 3. This morning, she states that she would like to get up out of bed and walk. She has a cough and sore throat. She does not have chest pain or dyspnea. She has chronic diarrhea but it has not worsened. After her pacemaker placement, she had a headache but it is improving. 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 Exam Vital Signs Vital Sign - Last Date Time Temp Pulse Resp B/P Pulse Ox O2 Delivery O2 Flow Rate FiO2 10/04/16 13:00 60 16 141/70 98 Room Air 10/04/16 08:08 36.9 Intake and Output 10/03/16 10/03/16 10/04/16 Cumulative From/Thru 15:00 23:00 07:00 10/01/16 21:22 - 10/04/16 05:47 Intake Total 1400 ml 410 ml 4528 ml Output Total 1900 ml 900 ml 6600 ml Balance -500 ml -490 ml -2072 ml Intake Oral 1400 ml 400 ml 3170 ml IV Total 10 ml 1358 ml Output Urine Total 1900 ml 900 ml 6600 ml # Voids 5 5 # Bowel Movements 2 1 4 Exam GEN: Awake, alert, and in no acute distress lying in bed, well developed, well nourished HEENT: Atraumatic, Normocephalic, no sclera icterus, pale conjunctiva, moist mucous membranes without oropharyngeal erythema or cobble stoning Neck: Supple with full ROM, no JVD. Temp pacer in R IJ with dressing c/d/i Respiratory: Breath sounds normal, minimal Bibasilar crackles Cardiovascular: Irregular rate and rhythm on monitor at time of exam, with no murmurs, gallops or rubs appreciated Abdomen / GI: Soft, Non-tender Skin: Warm, Dry, and intact Neurologic: Alert, Oriented, Nonfocal Psychiatric: Mood/affect normal, Behavior normal, Normal thought content Extremity: No edema IVs and Medications Medications Reviewed: Medications were reviewed in detail Lab and Diagnostics Result Diagram: 5/21/17 0250 5/21/17 0250 X-Rays, CTs and MRIs Chest Xray Interpretation: IMPRESSION: Increased left basilar opacification system with pneumonia versus atelectasis. Small left-sided effusion. Dictated by: Marlin Allen MD, PhD on 10/01/2016 at 21:48 Approved by: Marlin Allen MD, PhD on 10/01/2016 at 21:49 PROCEDURE: CT ANGIO CHEST PULMONARY EMBOLISM IMPRESSION: 1. No visualized pulmonary embolism. 2. Mild left pleural effusion. 3. Small pericardial effusion. Approved by: Argenis Bowen M.D. on 10/02/2016 at 8:34 12-lead ECG ECG Interpretation Time: 09:35 Interpreted by: ED physician Rhythm / Conduction: Atrial fib with RVR (rate of 141) Time: 09:37 Interpreted by: ED physician Abnormal Rate: 40 (46) Rhythm / Conduction: Atrial fibrillation (Slow) Cardiac Echo Impressions Echocardiogram Report Interpretation Summary Left ventricular wall thickness is at the upper limits of normal. Left ventricular systolic function is normal. The ejection fraction is estimated to be 65-70%. There are no focal wall motion abnormalities. Assessment of diastolic parameters indicates a relaxation abnormality of the left ventricle, consistent with normal filling pressures. The right ventricle is normal in size and function. There is a pacemaker lead in the right ventricle. The right ventricular systolic pressure is estimated at 28 mmHg assuming a right atrial pressure of 3 mm Hg. The left atrium is mildly dilated. Right atrial size is normal. There is mild to moderate tricuspid regurgitation. There is no other significant valvular heart disease. The aortic root is normal size. Reading Physician:PM Assessment & Plan Pt is a 75 yo female with no significant past medical history, who presents to the ED via EMS with rapid palpitations, onset this evening. EMS rhythm strips recorded episodes of A-fib with RVR in the 200's and short bradycardic episodes in the 30's. Pt was asymptomatic when she had rapid heart rate but during her bradycardic episodes she reports near syncope that she describes as "greying out " and hot flashes. Hospital day 2. 1. New onset sick sinus syndrome with tachycardia, present on admission. Resolved. - On telemetry - Patient seen by Dr. Phipps in ED, temporary pacemaker placed, with plans for replacement to pacemaker on Tuesday - Patient reverted back to sinus rhythm during CTA procedure, temporary pacemaker insertion postponed at that time - Echocardiogram as above shows mild left atrium dilation - Appreciate cardiology time and expertise - Patient had a permanent pacemaker placed today - Heart healthy diet 2. Essential hypertension, acute, present on admission. Active. - Patient has been intermittently hypertensive during hospital stay - She was not previously taking an anti-hypertensive - Start chlorthalidone 12.5 mg once daily - Continue to monitor 3. New onset atrial fibrillation with RVR, present on admission. Resolved. - CHADsvasc score of 2, heparin ggt started with intention to initiate Eliquis for ongoing anticoagulation - Cardiology recommended esmolol if tachycardia worsens 4. Chest pain, present on admission. Resolved. - Most likely due to the new onset of A-fib with RVR and sick sinus syndrome with tachycardia - CTA negative for Pulmonary embolism 5. Elevated D-dimer, present on admission. Acute. - CTA negative 6. Chronic gastroesophageal reflux disease. Stable. - Continue famotidine 7. Chronic diarrhea, present on admission. Stable. - History of C. difficile infection treated in the past and pt reports diarrhea since then - Stool PCR C. difficile ordered Acetaminophen-fever/headache/mild/moderate pain Antiemetics, as needed Bowel regimen, as needed. Patient status: Patient was admitted under inpatient status with expected length of stay greater than two midnights due to severity of presenting symptoms , risk of adverse event, and complexity of treatment plan. Anticipate discharge in 1-2 days. GI Prophylaxis: Not indicated VTE Prophylaxis: Other (Heparin ggt) Resuscitation Status: CPR: Attempt Resuscitation Attending Statement The patient was seen and examined together with Dr. Chau on 10-04-16 and I agree with the history, exam and plan as outlined in the note above. Maren Chau DO October 04, 2016 13:18 Rolando Gannon MD October 05, 2016 16:24
--- NOTE | 2016-10-04 14:14 | DRSVH ---
PROCEDURE: X-RAY CHEST ONE VIEW, PORTABLE ([id number]) INDICATIONS: For new leads placed TECHNIQUE: One view of the chest was acquired. COMPARISON: [facility], CR, CHEST 1 VIEW, 09/27/2016, 8:38. [facility], CR, XR CHES T 1VW (PORTABLE), 10/01/2016, 21:24. FINDINGS: Surgical changes and devices: None. Lungs and pleura: No pleural effusions or pneumothorax. Persistent left basilar small pleural effus ion and airspace opacity. Mediastinum: Mediastinal contours appear normal. Heart size is normal. Bones and chest wall: No suspicious bony lesions. Overlying soft tissues appear unremarkable. IMPRESSION: No immediate complications status post cardiac pacemaker placement. Small left basilar pleural effusion and airspace opacity consistent with compressive atelectasis vers us consolidation. Dictated by: Demario Schreiber [facility] Interpreted: Len Kevin MD on 10/04/2016 at 14:13 Transcribed by: MIAH on 10/04/2016 at 14:14 Approved by: Len Kevin M.D. on 10/04/2016 at 15:02
--- NOTE | 2016-10-04 14:39 | NUR ---
Return from procedure Patient returned to room 2010 post pacemaker insertion. Left upper chest dressing, c/d/i. Pulses intact. A-paced/SR per cardiac cath rn. Vital signs stable. Denies pain. Activity restrictions reviewed, pt verbalizes understanding of. Will continue to monitor.
[2016-10-05] MEDS ORDERED: Vancomycin Inj 1,000 MG in IV Premix 1 EACH IV ONE (00:15)
[2016-10-05] MEDS: Sodium Chloride LOK Flush 10 mL Syringe IVFLUSH SCH ×2 (00:52→09:57)
[2016-10-05] MEDS: Heparin 5,000 Unit/mL Inj SUBQ SCH ×2 (00:52→08:30)
--- NOTE | 2016-10-05 01:21 | OP ---
[address] [address] OPERATIVE REPORT PATIENT: EDIE BRUNSON : 1940 MR#: [id number] ADMIT: 10/01/2016 JOB ID: [id number] DATE OF SURGERY: 10/04/2016 PREOPERATIVE DIAGNOSIS(ES): Sick sinus syndrome. POSTOPERATIVE DIAGNOSIS(ES): Sick sinus syndrome. PROCEDURES PERFORMED: 1. Dual-chamber pacemaker implantation. 2. Left upper extremity venogram. 3. Fluoroscopy. SURGEON: Dio Phipps MD, electrophysiology attending [employer]OM[employer] GLASS TECHNICIAN: Arnoldo Her IMPLANTED DEVICES: 1. [employer] pulse generator, model PM72, serial #[id number]. 2. Right atrial lead [employer] 1200M, 46 cm, serial #[id number]. 3. RV lead [employer] 1200M, 52 cm, serial #[id number]. ANESTHESIA: Bolus dosing of Versed and fentanyl were utilized for an appropriate level of sedation. INDICATIONS: The patient is a young is a pleasant 75-year-old woman with preserved biventricular function, paroxysmal rapid atrial flutter and fibrillation and long pauses lasting up to 8-9 seconds consistent with sick sinus syndrome. After discussion of risks and benefits of pacemaker implantation, she opted to proceed. PROCEDURAL DESCRIPTION: Following informed and signed consent, the patient was taken to the EP laboratory in a nonsedated state where she was prepped in usual sterile fashion. The left infraclavicular region was infiltrated with 40 cc of a 50/50 mixture of bupivacaine and lidocaine. Once adequate anesthesia had been achieved, a 3 cm transverse incision was performed 2 cm below the clavicle. Dissection was carried down to the pectoralis fascia and a pocket was then fashioned using a combination of electrocautery and blunt dissection and was achieved. Attempts to access the left axillary vein with micropuncture were unsuccessful. A left upper extremity venogram was performed. Under venographic guidance, the vessel was cannulated twice with a micropuncture needle to deploy two 0.035 J guidewires. Over the first of these, an 8-Sudanese tear-away sheath was advanced. Once removed, the active fixation wire was advanced to the RV outflow tract and ultimately the RV apex. The lead was affixed in position using associated active fixation screw. It was connected to the external analyzer and demonstrated appropriately sensed R waves, impedance, and capture threshold. Lead was checked to 10 V and there was no evidence of diaphragmatic stimulation. Attention was now paid to placement of the right atrial lead. Over the previously deployed J guidewire, another 8-Sudanese tear-away sheath was advanced. Once the guidewire was removed, an active fixation lead was advanced to the right atrial appendage. It was affixed in position using associated active fixation screw. It was connected to the external analyzer and demonstrated appropriately sensed P waves, impedance, capture threshold was checked to 10 V and there was no evidence of diaphragmatic stimulation. Once the was performed with multiple fluoroscopic views, the leads were secured to the prepectoralis fascia using associated anchoring sleeves and 2 Ethibond sutures. The pocket was then copiously positioned. The leads were connected to a generator adjusted in the pocket at 6 o'clock and 12 o'clock using one 0 Ti-Cron suture. The incision was then closed with running layers of absorbable suture. The wound was dressed with skin adhesive and a small dressing at the end of the procedure. The needle, sponge, and instrument counts were correct. COMPLICATIONS: None. ESTIMATED BLOOD LOSS: Negligible. DEVICE MEASURED DATA: 1. Right atrial lead greater than 5 mV, 510 ohms, 0.5 V at 0.4 msec. 2. RV lead greater than 12 mV, 690 ohms, 0.75 V at 0.4 msec. FINAL PROGRAM PARAMETERS: DDD 60-130 beats per minute. IMPRESSION: Successful dual-chamber pacemaker implantation. PLAN: 1. Stat portable chest x-ray. 2. PA and lateral chest x-ray in the morning. 3. Device interrogation. 4. IV vancomycin through tomorrow. 5. Doxycycline 100 mg p.o. daily x7 days starting tomorrow. 6. Wound check in one week. ATTENDING STATEMENT: IDio MD, electrophysiology attending, was present for and supervised/performed all aspects of this procedure.
[2016-10-05 04:03] VITALS: BP 154/72; PULSE 63; RESP 15; O2SAT 98
[2016-10-05 04:12] LABS: Mean Corpuscular Hemoglobin 28.4 pg (27.0-35.0); Mean Corpuscular Volume 81.9 fL (81-100)
--- NOTE | 2016-10-05 06:13 | NUR ---
PAIN/ACTIVITY Patient reported mild pain that was increasing and took a vicodin at bedtime. Slept well most of the night. Up to BSC with large liquid stool. Using ice to op site, which is c/d/i. Vitals remain stable.
[2016-10-05 08:00] VITALS: BP 147/70; PULSE 68; RESP 18; O2SAT 97
[2016-10-05] MEDS: 0.9% Sodium Chloride 1,000 ML IV SCH (08:13)
[2016-10-05 10:14] VITALS: BP 141/65; PULSE 65; RESP 20; O2SAT 95
--- NOTE | 2016-10-05 10:32 | DRSVH ---
PROCEDURE: X-RAY CHEST, TWO VIEWS ([id number]) INDICATIONS: For new lead placement TECHNIQUE: 2 views of the chest were acquired. COMPARISON: [facility], CR, XR CHEST 1VW (PORTABLE), 10/04/2016, 12:21. FINDINGS: Surgical changes and devices: Stable positioning of left cardiac pacer. Lungs and pleura: Small pleural effusion and airspace opacity redemonstrated. Right lung is clear. Mediastinum: Mediastinal contours are normal. Heart size is normal. Bones and chest wall: No suspicious bony abnormalities. Soft tissues appear unremarkable. IMPRESSION: 1. Stable position of left pacer. 2. Small left pleural effusion and basilar consolidation unchanged. Dictated by: Demario Schreiber RRA Interpreted: Argenis Bowen MD on 10/05/2016 at 8:24 Approved by: Argenis Bowen M.D. on 10/05/2016 at 10:31
[2016-10-05] MEDS ORDERED: ASPI325T32 PO (11:11)
[2016-10-05] MEDS ORDERED: DOXY100T2 PO (11:11)
[2016-10-05] MEDS ORDERED: HYG25 PO (11:11)
--- NOTE | 2016-10-05 11:42 | PCM.DIMED ---
Maren Chau DO 10/05/16 0756: Discharge Instructions Date of Service October 05, 2016 Dates of Hospitalization October 01, 2016 at 22:29 Discharge Diagnosis Discharge Diagnosis You had a pacemaker placed for sick sinus syndrome, a heart arrhythmia. Diet Discharge Diet: Heart Healthy Activity Discharge Activity: Limited until seen by PCP Call your provider Call your provider for: Fever or Chills, Shortness of breath, Bleeding, Chest pain, Vomitting, Excessive diarrhea, Weakness (unilateral), Other (swelling at the pacemaker site) Patient Instructions Patient Instructions You have been started on chlorthalidone 12.5 mg once daily for high blood pressure. Please continue this medication until you follow up with your primary care provider to discuss and review your blood pressure in 7-10 days. Keep your arm in the sling as advised per cardiology and no heavy lifting for 4- 6 weeks. Continue doxycycline 100 mg once daily for 7 days starting today. Follow up in [address] Phipps's office for a wound check. Start taking a full dose aspirin once daily for stroke prevention for atrial fibrillation. Since you requested to start an aspirin instead of starting an anticoagulant like warfarin, please discuss with cardiology at your follow up appointment in 1 week. Follow-up Provider: Dio Phipps MD Follow-up with PCP in: 1 week Provider: Adal Arias MD Follow-up in: 1 week Rolando Gannon MD 10/05/16 1657: Discharge Instructions Attending's Statement The patient was seen and examined together with Dr. Chau on 10-05-16 and I agree with the history, exam and plan as outlined in the note above. Maren Chau DO October 05, 2016 07:56 Rolando Gannon MD October 05, 2016 16:57
[2016-10-05 12:06] VITALS: BP 150/75; PULSE 77; RESP 20; O2SAT 98
--- NOTE | 2016-10-05 12:47 | NUR ---
Discharge Pt left with family friend. A&Ox3, vitals stable, slightly elevated BP. Discharge instructions gone over and understood. Educated about new BP medication that was ordered, information given, patient still not wanting to take it. Asked her to talk about it with her PCP follow up pt. IVx2 and tele removed.
--- NOTE | 2016-10-05 14:22 | NUR ---
Social Work Note: Discharge Data& Assessment: EMR reviewed. Per pt is medically improved and ready to discharge home via POV. SW me with pt and pt daughter at bedside to confirm discharge plan and assess for any unmet needs. Tracy Lee is a 75 year old female admitted on 10/01/2016 for rapid AFIB. Pt had pacemaker placement completed yesterday 10/04/2016. Per MD is medically improved and ready to discharge. Pt daughter to transport pt home today. Pt is ambulating at baseline and pt denies any other needs. No other discharge needs identified. Pt and pt daughter all updated and agreeable to plan. Plan: Per pt is medically ready to discharge home via POV post pacemaker placement. Pt denies any other needs. No other discharge needs identified. All updated and agreeable to plan. [facility] [place]
--- NOTE | 2016-10-06 20:06 | PCM.DC.MED ---
Discharge Summary Date of Service October 06, 2016 Dates of Hospitalization Date of Hospital Admission October 01, 2016 at 22:29 Date of Discharge: October 05, 2016 Providers: Admitting Physician: Elvis Russell MD Primary Care Physician: Adal Arias MD Attending Physician: Elvis Russell MD Diagnosis at Time of Discharge Diagnosis at Time of Discharge You had a pacemaker placed for sick sinus syndrome, a heart arrhythmia. Procedures XRay, CTs & MRIs Chest Xray Interpretation: IMPRESSION: Increased left basilar opacification system with pneumonia versus atelectasis. Small left-sided effusion. Dictated by: Marlin Allen MD, PhD on 10/01/2016 at 21:48 Approved by: Marlin Allen MD, PhD on 10/01/2016 at 21:49 PROCEDURE: CT ANGIO CHEST PULMONARY EMBOLISM IMPRESSION: 1. No visualized pulmonary embolism. 2. Mild left pleural effusion. 3. Small pericardial effusion. Approved by: Argenis Bowen M.D. on 10/02/2016 at 8:34 PROCEDURE: X-RAY CHEST, TWO VIEWS ([id number]) INDICATIONS: For new lead placement TECHNIQUE: 2 views of the chest were acquired. COMPARISON: [facility], CR, XR CHEST 1VW (PORTABLE), 10/04/2016 IMPRESSION: 1. Stable position of left pacer. 2. Small left pleural effusion and basilar consolidation unchanged. Approved by: Argenis Bowen M.D. on 10/05/2016 at 10:31 ECG 12 Lead ECG Interpretation Time: 09:35 Interpreted by: ED physician Rhythm / Conduction: Atrial fib with RVR (rate of 141) Time: 09:37 Interpreted by: ED physician Abnormal Rate: 40 (46) Rhythm / Conduction: Atrial fibrillation (Slow) Cardiac Echo Impression Echocardiogram Report Interpretation Summary Left ventricular wall thickness is at the upper limits of normal. Left ventricular systolic function is normal. The ejection fraction is estimated to be 65-70%. There are no focal wall motion abnormalities. Assessment of diastolic parameters indicates a relaxation abnormality of the left ventricle, consistent with normal filling pressures. The right ventricle is normal in size and function. There is a pacemaker lead in the right ventricle. The right ventricular systolic pressure is estimated at 28 mmHg assuming a right atrial pressure of 3 mm Hg. The left atrium is mildly dilated. Right atrial size is normal. There is mild to moderate tricuspid regurgitation. There is no other significant valvular heart disease. The aortic root is normal size. Reading Physician:THAO Invasive Procedures Dual-chamber pacemaker implantation on 10/04/2016 Brief History From the history and physical performed by Dr. Jenna Osborne on 10/01/2016: Pt is a 75 y.o. female who presents to the ED via EMS with rapid palpitations, onset this evening. EMS rhythm strips recorded episodes of A-fib with RVR in the 200's and short bradycardic episodes in the 30's. Pt was asymptomatic when she had rapid heart rate but during her bradycardic episodes she reports near syncope that she describes as "greying out" and hot flashes. Pt was seen at [facility] on Tuesday (09/27) for chest pain, the source for her pain was not identified. Patient states she has had occasional pain chest pain, which she attributed to her reflux symptoms. Patient denies hx of A-fib. In the ED vitals temperature 36.5 pulse 136 respiratory 20 blood pressure 158/ 72 98% on room air. D-dimer 1.02. All other labs within normal range. CXR showed some mild evidence of pneumonia with small left-sided effusion. ECG in ED showed atrial fibrillation with RVR at rate of 141, 2 minutes later atrial fibrillation with rate of 40. Patient relapsing into bradycardia every 2-3 mins. Patient was seen by Dr. Phipps the on-call warpman, patient to go to CT angiogram to rule out PE, then to the Systems Development Consultant to receives temporary pacemaker tonight, with plans to replace it with permanent pacemaker on Tuesday. Patient admitted for further treatment and management. Hospital Course Pt is a 75 yo female with no significant past medical history, who presented to the ED via EMS with rapid palpitations, onset that evening. EMS rhythm strips recorded episodes of A-fib with RVR in the 200's and short bradycardic episodes in the 30's. Pt was asymptomatic when she had rapid heart rate but during her bradycardic episodes she reported near syncope that she described as "greying out" and hot flashes. 1. New onset sick sinus syndrome with tachycardia, present on admission. Improved. - Patient seen by Dr. Phipps in ED - Patient reverted back to sinus rhythm during CTA procedure, temporary pacemaker insertion postponed at that time - On 10/02/16, she had episodes of rapid aflutter with significant conversion pauses so a temporary pacemaker placed with plans for replacement to permanent pacemaker on 10/04/16. - Echocardiogram as above showed mild left atrium dilation - Appreciated cardiology time and expertise - Patient had a permanent dual chamber pacemaker placed on 10/04/16 2. Essential hypertension, acute, present on admission. Active. - Patient had been hypertensive with an average blood pressure of 150s/70s during hospital stay - She was not previously taking an anti-hypertensive - Started chlorthalidone 12.5 mg once daily - Recommend reassessment outside of the hospital setting 3. New onset atrial fibrillation with RVR, present on admission. Stable. - CHADsvasc score of 2 based on female and age or CHADs score of 1 if use new diagnosis of hypertension - Discussed risks and benefits of anticoagulation options with patient and patient declined starting warfarin or a new oral anticoagulant at this time. She requested to start a full dose aspirin at this time. Recommend discussing again as an outpatient with either cardiology or her primary care provider. 4. Chest pain, present on admission. Resolved. - Most likely due to the new onset of A-fib with RVR and sick sinus syndrome with tachycardia and small left pleural effusion - CTA negative for pulmonary embolism 5. Elevated D-dimer, present on admission. Acute. - CTA negative 6. Chronic gastroesophageal reflux disease. Stable. - Continue histamine lynn 7. Chronic diarrhea, present on admission. Stable. - History of C. difficile infection treated in the past and pt reports diarrhea since then - Stool PCR C. difficile negative In summary, Ms. Lee is a 75 y/o woman who presented to the ED via EMS with rapid palpitations and was found to have sick sinus syndrome. She then had a permanent pacemaker placed and was stable with a heart rate in the 60-70s. Exam Vital Signs (Last) Date Time Temp Pulse Resp B/P Pulse Ox O2 Delivery O2 Flow Rate FiO2 10/05/16 12:06 77 20 150/75 98 Room Air 10/05/16 10:14 36.6 Exam GEN: Awake, alert, and in no acute distress lying in bed, well developed, well nourished HEENT: Atraumatic, Normocephalic, no sclera icterus, pale conjunctiva, moist mucous membranes without oropharyngeal erythema or cobble stoning Neck: Supple with full ROM, no JVD. Temp pacer in R IJ with dressing c/d/i Respiratory: Breath sounds normal and clear to auscultation bilaterally Cardiovascular: Regular rate and rhythm, with no murmurs, gallops or rubs appreciated Abdomen / GI: Soft, Non-tender Skin: Warm, Dry, and intact Neurologic: Alert, Oriented, Nonfocal Psychiatric: Mood/affect normal, Behavior normal, Normal thought content Extremity: No edema Test 10/01/16 21:50 10/01/16 22:10 10/01/16 22:40 10/01/16 23:50 Erythrocyte Sedimentation Rate 41mm/hr (0-40) D-Dimer 1.02mg/L FEU (<0.50) Uric Acid 6.4mg/dL (2.6-7.2) Magnesium Level 2.1mg/dL (1.6-2.6) Total Bilirubin 0.4mg/dL (0.0-1.2) Aspartate Amino Transf (AST/SGOT) 18U/L (0-50) Alanine Aminotransferase (ALT/SGPT) 19U/L (0-32) Alkaline Phosphatase 95U/L (25-165) Troponin T 0.010ug/L (0.0-0.011) Pro-B-Type Natriuretic Peptide 612.4pg/mL (0-738) Total Protein 7.2g/dL (6.4-8.4) Albumin 3.8g/dL (3.4-5.0) Thyroid Stimulating Hormone (TSH) 1.780uIU/mL (0.450-4.500) Free Thyroxine 1.52ng/dL (0.82-1.77) Hold Bello Top Tube Received (Received) Rheumatoid Factor 13.0IU/mL (0.0-13.9) Anti-Nuclear Antibody Screen Negative (Negative) Hold Urine Received (Received) Urine Color Yellow (YELLOW) Urine Appearance Clear (CLEAR,HAZY) Urine pH 5.5 (5.0-8.0) Urine Specific [place] 1.020 (1.003-1.035) Urine Protein Negativemg/dL (NEG,TRACE) Urine Glucose (UA) Negativemg/dL (NEGATIVE) Urine Ketones Tracemg/dL (NEGATIVE) Urine Occult Blood Moderate (NEGATIVE) Urine Nitrite Negative (NEGATIVE) Urine Bilirubin Negative (NEGATIVE) Urine Urobilinogen Normalmg/dL (NORMAL) Urine Leukocyte Esterase Negative (NEGATIVE) Urine RBC 3-10/hpf (0-2) Urine WBC 0-5/hpf (0-5) Urine Epithelial Cells Occasional/hpf (NONE-MOD) Urine Crystals None seen (NONE SEEN) Urine Bacteria Few/hpf (NONE-FEW) Urine Hyaline Casts None/lpf (NONE) Urine Granular Casts None seen (NONE SEEN) Urine Waxy Casts None seen (NONE SEEN) Urine Red Blood Cell Casts None seen (NONE SEEN) Urine White Blood Cell Casts None seen (NONE SEEN) Urine Mucus None seen (None Seen) Urine Trichomonas None seen (NONE SEEN) Urine Yeast None (NONE SEEN) Urinalysis Comment None Urine Culture Reflexed Not indicated Test 10/02/16 02:04 10/02/16 18:15 10/05/16 03:45 Neutrophils (%) (Auto) 77.5% (40-74) Lymphocytes (%) (Auto) 13.8% (14-46) Monocytes (%) (Auto) 8.0% (4-12) Eosinophils (%) (Auto) 0.5% (0-5) Basophils (%) (Auto) 0.1% (0-3) Activated Partial Thromboplast Time 27.3sec (22.8-33.0) White Blood Count 6.8th/mm3 (3.8-10.1) Red Blood Count 4.76mil/mm3 (3.90-5.20) Hemoglobin 13.5g/dL (12.0-15.6) Hematocrit 39.0% (35.0-46.0) Mean Corpuscular Volume 81.9fL (81-100) Mean Corpuscular Hemoglobin 28.4pg (27.0-35.0) Mean Corpuscular Hemoglobin Concent 34.6% (32.0-37.0) Red Cell Distribution Width 13.2% (12.3-15.4) Platelet Count 279bil/L (150-400) Sodium Level 137mEq/L (134-144) Potassium Level 3.7mEq/L (3.5-5.2) Chloride Level 101mEq/L (97-108) Carbon Dioxide Level 21mmol/L (18-29) Blood Urea Nitrogen 14mg/dL (8-27) Creatinine 0.68mg/dL (0.57-1.00) Estimat Glomerular Filtration Rate 121mL/min (>59) Glucose Level 97mg/dL (60-99) Calcium Level 9.1mg/dL (8.5-10.1) Prealbumin 14mg/dL (20-40) Discharge Medications Discharge Medications Aspirin (Aspirin) 325 Mg Tablet 325 MG PO DAILY Prescribed by: ROSALINO CHAU DO Chlorthalidone (Chlorthalidone) 25 Mg Tablet 12.5 MG PO DAILY Prescribed by: ORSALINO CHAU DO Cholecalciferol (Vitamin D3) (Vitamin D) 1,000 Unit Tablet Unknown Dose PO DAILY (Reported) Cyanocobalamin (Vitamin B-12) (Vitamin B-12) 2,000 Mcg Tablet 2,000 MCG PO DAILY (Reported) Doxycycline Hyclate (Doxycycline Hyclate) 100 Mg Tablet 100 MG PO DAILY Prescribed by: ROSALINO CHAU DO Ranitidine (Ranitidine) 75 Mg Tablet 150 MG PO DAILY (Reported) Followup Plan Discharge Diet: Heart Healthy Discharge Activity: Limited until seen by PCP Patient Instructions You have been started on chlorthalidone 12.5 mg once daily for high blood pressure. Please continue this medication until you follow up with your primary care provider to discuss and review your blood pressure in 7-10 days. Keep your arm in the sling as advised per cardiology and no heavy lifting for 4- 6 weeks. Continue doxycycline 100 mg once daily for 7 days starting today. Follow up in [address] Phipps's office for a wound check. Start taking a full dose aspirin once daily for stroke prevention for atrial fibrillation. Since you requested to start an aspirin instead of starting an anticoagulant like warfarin, please discuss with cardiology at your follow up appointment in 1 week. Follow-up Provider: Dio Phipps MD Follow-up with PCP in: 1 week Provider: Adal Arias MD Follow-up in: 1 week Attending Statement The patient was seen and examined together with Dr. Chau on 10-05-16 and I agree with the history, exam and plan as outlined in the note above. copies to: Dio Phipps MD; Adal Arias MD, Marissa L DO October 06, 2016 20:06 Rolando Gannon MD Oct 18, 2016 07:00
== END 2016-10-05 12:50 | disposition home or self-care (01) | DRG 243 ==
LOC: SED 20:34 → EDBD 20:34 → CCU 22:29 → PCC 10-04 15:20
PROVIDERS: ADMIT Hospitalist; ATTEND Hospitalist
PROC: 5A1213Z Performance of Cardiac Pacing, Intermittent (ICD-10-PCS; 2016-10-02)
PROC: 0JH606Z Insertion of Pacemaker, Dual Chamber into Chest Subcutaneous Tissue and Fascia, Open Approach (ICD-10-PCS; principal; 2016-10-04)
PROC: 02H63JZ Insertion of Pacemaker Lead into Right Atrium, Percutaneous Approach (ICD-10-PCS; 2016-10-04)
PROC: 02HK3JZ Insertion of Pacemaker Lead into Right Ventricle, Percutaneous Approach (ICD-10-PCS; 2016-10-04)
DX: I49.5 Sick sinus syndrome (principal); I48.92 Unspecified atrial flutter; I48.91 Unspecified atrial fibrillation; K21.9 Gastro-esophageal reflux disease without esophagitis; I10 Essential (primary) hypertension; R19.7 Diarrhea, unspecified

== ENCOUNTER 2016-10-28 04:15 | Observation (INO) | payer MEDICARE ==
[2016-10-28] VITALS (11 sets, daily range): BP systolic 140–166; BP diastolic 55–83; PULSE 61–83; RESP 12–24; O2SAT 94–100
[~2016-10-28] VITALS: Ht 167.6 cm; Wt 70.7 kg
[~2016-10-28 04:15] MED LIST: ASPI325T32 PO; CHOL100043 PO; DOXY100T2 PO; HYG25 PO; RANI-426 PO; [UNRECOGNIZED DRUG - CODE] PO
--- NOTE | 2016-10-28 04:36 | ED.REPORT ---
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 Associated symptoms include pain that radiates into her jaw and left shoulder, lightheadedness and shortness of breath. The patient reports that her shortness of breath was exacerbated when she tried to lay down. She rates the pain at its worst as an 8/10 and is currently at a 7/ 10. Prior to arrival to the ED, the patient took 650mg of ASA at 0000 and then 325 mg at 0300 with no relief of symptoms. Nursing Notes Stated Complaint: CHEST PAIN Chief Complaint: Chest Pain Nursing Notes Reviewed: Yes Allergies: Coded Allergies: No Known Allergies (Unverified , 10/28/16) Scheduled Aspirin (Aspirin) 325 Mg Tablet 325 MG PO DAILY Chlorthalidone (Chlorthalidone) 25 Mg Tablet 12.5 MG PO DAILY Cholecalciferol (Vitamin D3) (Vitamin D) 1,000 Unit Tablet Unknown Dose PO DAILY Cyanocobalamin (Vitamin B-12) (Vitamin B-12) 2,000 Mcg Tablet 2,000 MCG PO DAILY Doxycycline Hyclate (Doxycycline Hyclate) 100 Mg Tablet 100 MG PO DAILY Ranitidine (Ranitidine) 75 Mg Tablet 150 MG PO DAILY General Time Seen by MD: 04:23 Chief Complaint Chest pain Hx Obtained From: Patient Arrived By: Ambulance Sudden in Onset?: Yes Onset Occurred: 1 - 4 hours ago Symptom Duration: Since onset Location: : Chest left Quality: Painful Radiation: : Jaw: Shoulder left Severity: Current: Moderate Recent Healthcare: Recent doctor visit, Recent hospitalization Similar Sx Previous: No Past Medical History Past Medical History tachy-michelle syndrome Past Surgical History pacemaker Reports: Appendectomy Smoking History Former Smoker Social History Alcohol Use: "Social" Ambulatory Status Independent Review of Systems Constitutional: Denies: Chills, Fever Respiratory: Reports: Shortness of breath, Denies: Non-productive cough Cardiovascular: Reports: Chest pain Musculoskeletal: Reports: Extremity pain Skin: Denies Diaphoresis Neurologic: Reports: Lightheaded, Denies: Numbness, Weakness Complete sys rev & neg: except as marked. Physical Exam Initial Vital Signs Vital Signs (First) Date Time Temp Pulse Resp B/P Pulse Ox O2 Delivery O2 Flow Rate FiO2 10/28/16 04:14 36.9 83 22 166/65 100 Nasal Cannula 2 Initial VS: Reviewed, Vital signs normal General/Constitutional: Awake, Alert Respiratory / Chest: Atraumatic, Breath sounds NL, Breath sounds = bilat, No respiratory distress Cardiovascular: Heart rate NL, Regular rhythm, Heart sounds NL Abdomen: Atraumatic, Soft, Non-tender Neck: Atraumatic, Supple, Full range of motion Lower Extremity / Pelvis / MS: Atraumatic, Full range of motion trace edema of the right leg Skin: Atraumatic, Color NL, No rash, Warm, Dry Neurologic: Oriented X3, Speech NL, No motor deficits, No sensory deficits Psychiatric: Affect NL, Mood NL Head / Eyes: Atraumatic, Normocephalic, PERRL, EOMI Interpretation & Diagnostics Lab Results Interpretation Result Diagram: 10/28/16 0426 10/28/166 Test 10/28/16 04:26 White Blood Count 12.1th/mm3 (3.8-10.1) Red Blood Count 4.63mil/mm3 (3.90-5.20) Hemoglobin 13.0g/dL (12.0-15.6) Hematocrit 38.4% (35.0-46.0) Mean Corpuscular Volume 82.9fL (81-100) Mean Corpuscular Hemoglobin 28.1pg (27.0-35.0) Mean Corpuscular Hemoglobin Concent 33.9% (32.0-37.0) Red Cell Distribution Width 14.2% (12.3-15.4) Platelet Count 297bil/L (150-400) Neutrophils (%) (Auto) 76.1% (40-74) Lymphocytes (%) (Auto) 16.1% (14-46) Monocytes (%) (Auto) 6.7% (4-12) Eosinophils (%) (Auto) 0.8% (0-5) Basophils (%) (Auto) 0.1% (0-3) D-Dimer 1.09mg/L FEU (<0.50) Sodium Level 138mEq/L (134-144) Potassium Level 4.9mEq/L (3.5-5.2) Chloride Level 102mEq/L (97-108) Carbon Dioxide Level 22mmol/L (18-29) Blood Urea Nitrogen 15mg/dL (8-27) Creatinine 0.76mg/dL (0.57-1.00) Estimat Glomerular Filtration Rate 107mL/min (>59) Glucose Level 123mg/dL (60-99) Calcium Level 9.1mg/dL (8.5-10.1) Magnesium Level 2.0mg/dL (1.6-2.6) Total Bilirubin 0.3mg/dL (0.0-1.2) Aspartate Amino Transf (AST/SGOT) 23U/L (0-50) Alanine Aminotransferase (ALT/SGPT) 12U/L (0-32) Alkaline Phosphatase 80U/L (25-165) Troponin T 0.010ug/L (0.0-0.011) Pro-B-Type Natriuretic Peptide 284.0pg/mL (0-738) Total Protein 6.8g/dL (6.4-8.4) Albumin 3.9g/dL (3.4-5.0) Hold Bello Top Tube Received (Received) ECG Interpretation ECG Interpretation: left anterior fasicular block anterior infarct, old Time: 04:22 Interpreted by: ED physician Normal ECG Interpretation: Normal rate (79), Normal sinus rhythm X-Ray Chest Interpretation Chest Xray Interpretation: mild bibasilar airspace disease vs atelectasis View: Portable, 1 view Interpretation / Wet Read by: Wet read ED physician Procedures 75-year-old who complains of shortness of breath and pleuritic chest pain for the last day or 2. Workup was initiated by me and her care will be turned over at change of shift to Dr. Patrick Spencer. Her d-dimer was elevated and other labs recently unremarkable. She is awaiting CT chest with angiogram protocol. Her care is turned over change of shift to Dr. Patrick Spencer. Discharge & Departure Shift Change Sign-Out Patient Care Transferred: Yes Discussed Complaint(s): Yes Discharge Condition All VS Reviewed: Yes Condition: Stable Referrals: Adal Arias MD (PCP) Care Transferred to: Dr. Spencer Care Transferred at: 06:00 Scribe Attestation Portions of this note were transcribed by Rachel Gomez. I, Dr. Frey personally performed the history, physical exam and medical decision-making; I reviewed and confirmed the accuracy of the information in the transcribed note. Signed by: Daniel Baker, 10/28/16 and [id number] copies to: Adal Arias MD, Howard L MD Oct 28, 2016 04:36 Jennie Gomez Oct 28, 2016 04:49
[2016-10-28 04:48] LABS: BASOPHILS % (AUTO) 0.1 % (0-3); EOSINOPHILS % (AUTO) 0.8 % (0-5); MONOCYTES % (AUTO) 6.7 % (4-12); Mean Corpuscular Hemoglobin 28.1 pg (27.0-35.0); Mean Corpuscular Volume 82.9 fL (81-100); NEUTROPHILS % (AUTO) 76.1 % (40-74); Platelet Count 297 bil/L (150-400)
[2016-10-28 05:17] LABS: TROPONIN T 0.01 ug/L (0.0-0.011)
[2016-10-28] MEDS ORDERED: Ondansetron 2 mg/mL 2 mL Inj IVPUSH ONE (08:00)
[2016-10-28] MEDS ORDERED: HYDROmorphone 0.5 mg/0.5 mL iSecure Syringe IVPUSH PRN (08:00)
--- NOTE | 2016-10-28 08:46 | DRSVH ---
PROCEDURE: X-RAY CHEST ONE VIEW, PORTABLE ([id number]) INDICATIONS: CHEST PAIN, DIZZY TECHNIQUE: One view of the chest was acquired. COMPARISON: [facility], CT, CT ANGIO CHEST PE, 10/28/2016, 5:56. [facility], CR, XR CHEST 2VW, 10/05/2016, 6:49. [facility], CR, XR CHEST 1VW (PORTABLE), 10/04/2016, 12:21. FINDINGS: Surgical changes and devices: The cardiac pacer/defibrillator apparatus is seen overlying the left ch est. Lungs and pleura: There are low lung volumes with increased density evident at the lung bases. No lo bar consolidation, effusion, or pneumothorax is evident. Mediastinum: Mediastinal contours appear normal. Heart size is normal. There is aortic atheroscler osis. Bones and chest wall: No suspicious bony lesions. Overlying soft tissues appear unremarkable. IMPRESSION: Subtle developing bibasilar densities may represent atelectasis, exaggerated by shallow i nspiration. Superimposed pneumonia cannot be entirely excluded. Please correlate clinically. Dictated by: Perfecto Sharma M.D. on 10/28/2016 at 8:43 Approved by: Perfecto Sharma M.D. on 10/28/2016 at 8:44
--- NOTE | 2016-10-28 08:50 | DRSVH ---
PROCEDURE: CT ANGIO CHEST PULMONARY EMBOLISM ([id number]) INDICATIONS: dyspnea, elev dimer TECHNIQUE: After the administration of intravenous contrast, 2 mm thick sections acquired from the pulmonary api jhon to the posterior costophrenic angles. 3-dimensional maximum intensity projection (MIP) coronal a nd sagittal reformats were then acquired through the thorax. For radiation dose reduction, the follo wing was used: automated exposure control, adjustment of mA and/or kV according to patient size. COMPARISON: None. FINDINGS: Image quality: Excellent. Pulmonary arteries: Pulmonary arteries are normal in size, and demonstrate no intraluminal filling d efects to suggest central pulmonary embolism. Lungs and pleura: Atelectasis noted in the dependent portions of the lungs. Patchy airspace opacity n oted in the posterior aspect of the left lung base which could represent atelectasis, aspiration or e monik pneumonia. Trace left-sided pleural fluid collection is noted. No pneumothorax. Central and per ipheral airways are patent. Mediastinum: Left chest wall cardiac pacer noted. Heart size is normal, without pericardial effusion . No mediastinal or hilar adenopathy. Thoracic aorta is normal in caliber and enhancement. Esophag us is normal in caliber, without hiatal hernia. Bones and chest wall: No suspicious bony lesions. Ribs and thoracic spine appear intact throughout. Spine degenerative disc disease and facet arthropathy. Thyroid gland is within normal limits. No a xillary or supraclavicular adenopathy. Abdomen: Small hiatal hernia noted. 2 capsules shaped densities are noted in the distal esophagus hammond spicious for retained pills. Circumferential wall thickening noted in the distal esophagus.. Visualiz ed upper abdominal solid organs appear normal in the early arterial phase of enhancement. IMPRESSION: 1. No pulmonary embolus. 2. Patchy airspace opacity in the left lung base compatible atelectasis, aspiration or early pneumoni a. Please correlate with clinical and laboratory data. 3. Trace left-sided pleural effusion. 4. Circumferential wall thickening involving the distal esophagus with likely retained pills in the d istal esophagus. Distal esophageal stricture related to inflammatory or neoplastic process cannot be excluded. Recommend either endoscopy or air-contrast the barium upper GI series for further evaluatio n. 5. Dictated by: Marlin Allen MD, PhD on 10/28/2016 at 8:42 Approved by: Marlin Allen MD, PhD on 10/28/2016 at 8:49
[2016-10-28] MEDS ORDERED: LidocaineVisc 2%:Antacid 1:1 10 mL Syringe PO SCH (09:00)
--- NOTE | 2016-10-28 10:26 | DRSVH ---
[facility] [address] [address] Echocardiogram Report Name: EDIE BRUNSON te: 10/28/2016 Height: 66 in Hospital Exam Location: [facility] Weight: 150 lb Gender: Other BSA: 1.8 m2 : 1940 Age: 75 yrs BP: 155/55 mmHg Reason For Study: Chest pain Ordering Physician: Performed By: Edvin Mondragon Interpretation Summary There is a trivial pericardial effusion that is a new finding from her prior echo on 10/02/16. The left ventricle is normal in size, wall thickness, and systolic function without any focal wall motion abnormalities. The ejection fraction is estimated to be 60-65%. There has been no significant change since the previous study. The right ventricle is normal in size, thickness and function. There is a pacemaker lead in the right ventricle. Procedure: The study quality was technically adequate. A two-dimensional transthoracic echocardiogram with color flow and Doppler was performed in limited views only. The patient has a paced rhythm. Left Ventricle: The left ventricle is normal in size, wall thickness, and systolic function without any focal wall motion abnormalities. The ejection fraction is estimated to be 60-65%. There has been no significant change since the previous study. Right Ventricle: The right ventricle is normal in size, thickness and function. There is a pacemaker lead in the right ventricle. Mitral Valve: The mitral valve is normal. Tricuspid Valve: The tricuspid valve is normal in structure and function. There is mild tricuspid regurgitation. Great Vessels: The inferior vena cava was not well visualized. Pericardium/ Pleura There is a trivial pericardial effusion that is a new finding from her prior echo on 10/02/16. There is no pleural effusion. MMode/2D Measurements & Calculations asc Aorta Diam: 2.5 cm RVD1 (basal): 3.3 cm TAPSE: 2.1 cm Reading Physician:GLEN
[2016-10-28] MEDS ORDERED: Ondansetron 2 mg/mL 2 mL Inj IVPUSH PRN ×2 (14:10→14:30)
[2016-10-28] MEDS ORDERED: Alum-Mag Hydrox-Simeth 30 mL Suspension PO PRN ×2 (14:10→14:30)
[2016-10-28] MEDS ORDERED: ASPI325T32 PO (14:30)
[2016-10-28] MEDS ORDERED: Polyethylene Glycol (PEG) 17 Gm Powder PO PRN (14:30)
[2016-10-28] MEDS ORDERED: fentaNYL-PF 50 mCg/mL 2 mL Inj IVPUSH ONE (14:50)
--- NOTE | 2016-10-28 14:58 | NUR ---
Admit nurse note Admission assessment completed in the ER. Pt. denies complaints aside from fatigue; however, after moving herself up in the bed she c/o 4/10 chest pain in to her neck and jaw. ER MD notified and orders pain meds for her. Pt. was here for new irregular heart beat 10/02 and had a pacemaker placed 10/04 of this year. She lives independently and manages well according to her report. She gardens and does not require assistance. NKA verified. Med hx obtained per pt. report. She states she was prescribed asa regularly but takes it prn for pain only, "which ends up being almost daily in the summer with gardening and such." Pt. took 2 asa last night for cp and 1 early this am per instructions from medics. She c/o chronic positional vertigo and dizziness from nitro and morphine. Pt. is given nonslip socks and oriented to room, call cespedes and fall precautions. [facility] internal med to be contacted for advance directives. Report given to Lucien Purvis.
[2016-10-28] MEDS: Sodium Chloride LOK Flush 10 mL Syringe IVFLUSH SCH ×2 (16:38→20:45)
--- NOTE | 2016-10-28 16:58 | PCM.HPMED ---
Subjective Date of Service Oct 28, 2016 Primary Provider: Admitting Physician: Jerry Cortes MD Primary Care Physician: Adal Arias MD Attending Physician: Jerry Cortes MD Admit Status: From the Emergency Department, Admit to [facility] Team Chief Complaint: 75-year-old woman with recent pacemaker placement presents with acute chest pain History of Present Illness: The patient had a cardiac pacemaker implantation on 10/05, due to atrial fibrillation with symptomatic bradycardic pauses.. Following this she had minimal musculoskeletal pain but required no analgesics. She was in her usual state of health until approximate 6 PM on the day prior to admission when she experienced abrupt onset of severe left-sided chest pain. She has never experienced this pain before. The pain is localized in the left upper anterior area near her pacemaker pocket. It radiated to her left neck and shoulder. 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 The pain was worse lying down somewhat better sitting in a reclining lounge or. The patient was also worse with deep inspiration. It was not exacerbated by movement or position. She took aspirin with no significant relief. She also reports mild presyncopal sensation even when sitting. She had no fevers sweats or chills. No cough. No symptoms outside the chest. Review of Systems: 11 systems were reviewed. Significant findings noted above. 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 Hx Alcohol Use: Yes (1 glass of wine per day) Hx Substance Use: No Hx Tobacco Use: Yes (currently tapering and planning to quit) Smoking Status: Former Smoker Living Arrangement: Alone (active without assistive devices and fully responsible for ADLs) Exam Vital Signs Vital Sign - Last Date Time Temp Pulse Resp B/P Pulse Ox O2 Delivery O2 Flow Rate FiO2 10/28/16 15:34 36.9 76 20 151/71 96 Nasal Cannula 1.00 Intake and Output 10/27/16 10/27/16 10/28/16 Cumulative From/Thru 15:00 23:00 07:00 10/28/16 04:14 - 10/28/16 05:36 Intake Total 1000 ml 1000 ml Balance 1000 ml 1000 ml Intake IV Total 1000 ml 1000 ml Exam General: Dysphoric appearing elderly woman in no acute distress HEENT: sclerae anicteric, oral mucosa moist Neck: no JVD, no bruit, no tenderness Chest: clear to auscultation, no chest wall tenderness, left upper anterior pacemaker site intact without erythema or swelling Cardiac: S1S2, regular, no murmur, no rub appreciated Abdomen: BS normal, non-tender Extremities: No pedal edema, no swollen or tender joints Neuro: A&O, cranial nerves symmetric, motor strength 5/5, coordination normal Lab and Diagnostics Result Diagram: 10/28/1642510/28/16425 X-Rays, CTs and MRIs PROCEDURE: CT ANGIO CHEST PULMONARY EMBOLISM ([id number]) IMPRESSION: 1. No pulmonary embolus. 2. Patchy airspace opacity in the left lung base compatible atelectasis, aspiration or early pneumonia. Please correlate with clinical and laboratory data. 3. Trace left-sided pleural effusion. 4. Circumferential wall thickening involving the distal esophagus with likely retained pills in the distal esophagus. Distal esophageal stricture related to inflammatory or neoplastic process cannot be excluded. Recommend either endoscopy or air-contrast the barium upper GI series for further evaluation. Dictated by: Marlin Allen MD, PhD on 10/28/2016 at 8:42 . 12-lead ECG 10/28/16 at 04:22 sinus rhythm rate 80; QRS axis -50, conduction intervals normal , no acute ST or T-wave changes, normal [place] interval. Assessment & Plan 75-year-old generally healthy woman presents with acute onset chest pain approximately 3 weeks after pacemaker placement. The pain is pleuritic and somewhat positional and most suggestive of pleural or pericarditis. Cardiac ischemia is very low probability in light of normal EKG and normal troponin after prolonged bout of continuous pain. She has coexisting esophageal disease but this does not seem to explain the current complaint. # Pericarditis, acute. - Analgesia with meloxicam - Prednisone 60 mg daily - Ambulate patient in a.m. - Cardiology consultation including pacemaker interrogation # Esophagitis, chronic - Continue H2 lynn # DVT prophylaxis - Subcutaneous heparin CODE STATUS is full code Disposition: Patient is admitted for observation due to her acute pain and recent pacemaker placement. Anticipate that she will discharged home if clinically stable on 10/29. Pain Evaluation: Pain not Controlled GI Prophylaxis: Not indicated VTE Prophylaxis: Sub-Q Heparin (Unfractionated) Resuscitation Status: CPR: Attempt Resuscitation Time spent 60 minutes Jerry Cortes MD Oct 28, 2016 16:58
[2016-10-28] MEDS ORDERED: predniSONE 20 mg Tablet PO ONE (17:28)
--- NOTE | 2016-10-28 17:55 | NUR ---
Chest and back pain 06/25. Meloxicam given with effective results. Daughter reports generalized weakness and lethargy compared to baseline, suspects this is due to narcotic administration in ED. IV in R forearm flushes w/o resistance, no s/s phlebitis or infiltration. 92% on 1L O2. Stand by assist with cares and transfers. Denies nausea.
[2016-10-28 18:46] LABS: APPEARANCE,URINE HAZY (CLEAR,HAZY); COLOR,URINE YELLOW (YELLOW); OCCULT BLOOD,URINE SMALL (NEGATIVE); UROBILINOGEN,URINE NORMAL (NORMAL)
[2016-10-28] MEDS: Heparin 5,000 Unit/mL Inj SUBQ SCH (23:49)
[2016-10-29 00:13] VITALS: BP 149/74; PULSE 75; RESP 16; O2SAT 93
[2016-10-29 03:46] VITALS: BP 152/72; PULSE 79; RESP 16; O2SAT 92
--- NOTE | 2016-10-29 04:41 | NUR ---
Ambulation Pt drowsy at HS, rousable to loud voice or light touch. Pt up and OOB, ambulated to 2nd floor lobby hallway and then through half-loop on floor. Reports some dizziness/lightheadedness on exertion, FWW utilized, SpO2 97% with exertion on RA. VSS throughout shift, tele SR 70s. Pt denies any chest pain, reports pain only with deep inspiration.
[2016-10-29 04:51] LABS: BASOPHILS % (AUTO) 0 % (0-3); EOSINOPHILS % (AUTO) 0 % (0-5); MONOCYTES % (AUTO) 3.9 % (4-12); Mean Corpuscular Hemoglobin 27.8 pg (27.0-35.0); Mean Corpuscular Volume 84.8 fL (81-100); NEUTROPHILS % (AUTO) 89.2 % (40-74); Platelet Count 226 bil/L (150-400)
[2016-10-29] MEDS ORDERED: predniSONE 20 mg Tablet PO SCH (08:30)
[2016-10-29 08:56] VITALS: BP 145/86; PULSE 81; RESP 18; O2SAT 93
[2016-10-29 10:09] VITALS: PULSE 86
[2016-10-29] MEDS: Heparin 5,000 Unit/mL Inj SUBQ SCH (10:12)
[2016-10-29] MEDS: Sodium Chloride LOK Flush 10 mL Syringe IVFLUSH SCH (10:14)
[2016-10-29 12:15] VITALS: BP 119/65; PULSE 94; RESP 20; O2SAT 94
--- NOTE | 2016-10-29 12:39 | DRSVH ---
[facility] [address] [place] [address] Echocardiogram Report Name: EDIE BRUNSON te: 10/29/2016 Height: 66 in Hospital Exam Location: [facility] Weight: 156 lb Gender: Other BSA: 1.8 m2 : 1940 Age: 75 yrs BP: 145/86 mmHg Reason For Study: Pericardial Effusion Ordering Physician: Performed By: Edvin Mondragon Interpretation Summary There is a trivial to small pericardial effusion noted. There has been no significant change since the previous study. Procedure: A two-dimensional transthoracic echocardiogram with color flow and Doppler was performed in limited views only. The study quality was technically good. Great Vessels: The IVC is of normal diameter and collapses less than 50% with a sniff. This suggests a right atrial pressure of 8 mm Hg. Pericardium/ Pleura There is a trivial to small pericardial effusion noted. There has been no significant change since the previous study. There is a small left-sided pleural effusion. MMode/2D Measurements & Calculations IVC diam: 1.9 cm Reading Physician:THAO
--- NOTE | 2016-10-29 14:06 | NUR ---
Case Management: Medicare FORMAN document and Medicare D brochure presented with explanation - signed at 1:40pm and dated 10/29/16 by patient - original FORMAN placed in chart, copy to patient. Pt did note on her FORMAN document that she had taken pain medications at 11am, and indicated that she was feeling "a little fuzzy", but seemed sufficiently alert and understanding of explanation of FORMAN form. She was encouraged to touch bases with either her Medicare managed plan through [place] or the billing department at [facility] if she had any questions. Notified nursing re: patient's "fuzzy feeling" - she rossy check on patient prior to discharge. Caridad Abdi, RN
[2016-10-29] MEDS ORDERED: MELO-259 PO (14:14)
[2016-10-29] MEDS ORDERED: COLC0.6T52 PO (14:14)
[2016-10-29] MEDS ORDERED: PRE10 PO ×2 (14:14→14:17)
--- NOTE | 2016-10-29 14:20 | PCM.DIMED ---
Discharge Instructions Date of Service Oct 29, 2016 Dates of Hospitalization Oct 28, 2016 at 14:39 Discharge Diagnosis Discharge Diagnosis Pericarditis Chest pain Presyncope Medication Instructions Additional med instructions Take meloxicam 2 tablets daily for pain control. This medication is similar to ibuprofen. Continue your ranitidine to minimize stomach irritation from pain medications. Take colchicine twice daily to reduce the inflammation around the heart. This medication may cause diarrhea. If you develop intolerable loose stools then you may reduce this to once per day and contact Dr. Phipps for guidance. Take prednisone 10 mg tablets according the following schedule: 4 tablets per day 3 days, then 3 tablets per day 4 days, then 2 tablets per day for 1 week, then 1 tablet per day for 2 weeks. Diet Discharge Diet: No restrictions Activity Discharge Activity: No restrictions, Other (activity as tolerated according to chest discomfort) Patient Instructions Patient Instructions Your episodes of feeling lightheaded do not seem to be due to any heart rhythm problem. Your pacemaker is functioning normally. There is no excessive fluid accumulating around your heart. You should expect to feel some discomfort as the inflammation around your heart resolves in coming weeks. Follow-up Provider: Dio Phipps MD Follow-up with PCP in: 1 week (contact Dr. Phipps's office for a follow-up appointment) Jerry Cortes MD Oct 29, 2016 14:16
--- NOTE | 2016-10-29 15:21 | NUR ---
Social Work: Initial Assessment/Discharge D: Per EMR review, pt is a 75 year old female admitted for chest pain. Pt is [employer] Medicare with no LTC insurance or VA benefits. PCP is Adal Arias MD. NOK is Casandra Cortes, dtr, . Advanced directives requested for pt's chart. No RA score entered at this time. TEST LAB TECHNICIAN met with pt and family at bedside. Sw role explained and contact info provided. See initial assessment. Pt lives in a single story home in [place], [facility]. Pt uses no DME, has never had HH or skilled rehab. Pt states her family will transport her home and has no concerns about discharge once medically stable; family agrees. EMR reviewed; pt is ambulating I during admission with no sw needs identified. Pt has active discharge orders; identifies no sw needs for d/c. A: Pt who is I at baseline. P: Anticipate pt to discharge home via POV with no sw needs; TEST LAB TECHNICIAN to continue to follow. FOREST Reeves Addendum: 10/29/16 at 1524 by PARUL HENLEY Amended: Links added.
--- NOTE | 2016-10-29 16:02 | NUR ---
Reviewed discharge instructions with patient, Patient verbalized understanding. Pt walked out of hospital with prescriptions and instructions. IV and Telemetry previously discontinued. Pt left hospital with daughter to home self care.
--- NOTE | 2016-11-03 17:11 | PCM.DC.MED ---
Discharge Summary Date of Service Oct 29, 2016 Dates of Hospitalization Date of Hospital Admission Oct 28, 2016 at 14:39 Date of Discharge: Oct 29, 2016 Providers: Admitting Physician: Ginny Little MD Primary Care Physician: Adal Arias MD Attending Physician: Ginny Little MD Diagnosis at Time of Discharge Diagnosis at Time of Discharge Pericarditis Chest pain Presyncope Procedures XRay, CTs & MRIs PROCEDURE: CT ANGIO CHEST PULMONARY EMBOLISM ([id number]) IMPRESSION: 1. No pulmonary embolus. 2. Patchy airspace opacity in the left lung base compatible atelectasis, aspiration or early pneumonia. Please correlate with clinical and laboratory data. 3. Trace left-sided pleural effusion. 4. Circumferential wall thickening involving the distal esophagus with likely retained pills in the distal esophagus. Distal esophageal stricture related to inflammatory or neoplastic process cannot be excluded. Recommend either endoscopy or air-contrast the barium upper GI series for further evaluation. Dictated by: Marlin Allen MD, PhD on 10/28/2016 at 8:42 . ECG 12 Lead 10/28/16 at 04:22 sinus rhythm rate 80; QRS axis -50, conduction intervals normal , no acute ST or T-wave changes, normal [place] interval. Cardiac Echo Impression Echocardiogram Report Name: EDIE BRUNSON Study Date: 10/29/2016 Height: 66 in Hospital Exam Location: [facility] Weight: 156 lb Gender: Other BSA: 1.8 m2 : 1940 Age: 75 yrs BP: 145/86 mmHg Reason For Study: Pericardial Effusion Ordering Physician: Performed By: Edvin Mondragon Interpretation Summary There is a trivial to small pericardial effusion noted. There has been no significant change since the previous study. Procedure: A two-dimensional transthoracic echocardiogram with color flow and Doppler was performed in limited views only. The study quality was technically good. Great Vessels: The IVC is of normal diameter and collapses less than 50% with a sniff. This suggests a right atrial pressure of 8 mm Hg. Pericardium/ Pleura There is a trivial to small pericardial effusion noted. There has been no significant change since the previous study. There is a small left-sided pleural effusion. . Brief History History of Present Illness (per admission note): The patient had a cardiac pacemaker implantation on 10/05, due to atrial fibrillation with symptomatic bradycardic pauses.. Following this she had minimal musculoskeletal pain but required no analgesics. She was in her usual state of health until approximate 6 PM on the day prior to admission when she experienced abrupt onset of severe left-sided chest pain. She has never experienced this pain before. The pain is localized in the left upper anterior area near her pacemaker pocket. It radiated to her left neck and shoulder. 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 The pain was worse lying down somewhat better sitting in a reclining lounge or. The patient was also worse with deep inspiration. It was not exacerbated by movement or position. She took aspirin with no significant relief. She also reports mild presyncopal sensation even when sitting. She had no fevers sweats or chills. No cough. No symptoms outside the chest. Hospital Course 75-year-old generally healthy woman presents with acute onset chest pain approximately 3 weeks after pacemaker placement. The pain is pleuritic and somewhat positional and most suggestive of pleural or pericarditis. Cardiac ischemia is very low probability in light of normal EKG and normal troponin after prolonged bout of continuous pain. She has coexisting esophageal disease but this does not seem to explain the current complaint. # Pericarditis, acute. - Analgesia with meloxicam seem to be very effective - Prednisone 60 mg daily recommended by Dr. Phipps - Colchicine 0.6 twice a day - Follow-up with Dr. Phipps # Esophagitis, chronic. Does not seem part of her current chest pain syndrome. - Continue H2 lynn . Exam Vital Signs (Last) Date Time Temp Pulse Resp B/P Pulse Ox O2 Delivery O2 Flow Rate FiO2 10/29/16 12:15 36.9 94 20 119/65 94 Room Air 10/28/16 17:16 1.00 Exam General: elderly woman in no acute distress HEENT: sclerae anicteric, oral mucosa moist Neck: no JVD, no bruit, no tenderness Chest: clear to auscultation, pacemaker site intact without erythema or swelling Cardiac: S1S2, regular, no murmur, no rub appreciated Abdomen: BS normal, non-tender Extremities: No pedal edema Neuro: A&O, cranial nerves symmetric, motor strength NL Test 10/28/16 04:26 10/28/16 07:14 10/28/16 18:16 10/29/16 04:10 D-Dimer 1.09mg/L FEU (<0.50) Magnesium Level 2.0mg/dL (1.6-2.6) Total Bilirubin 0.3mg/dL (0.0-1.2) Aspartate Amino Transf (AST/SGOT) 23U/L (0-50) Alanine Aminotransferase (ALT/SGPT) 12U/L (0-32) Alkaline Phosphatase 80U/L (25-165) Pro-B-Type Natriuretic Peptide 284.0pg/mL (0-738) Total Protein 6.8g/dL (6.4-8.4) Albumin 3.9g/dL (3.4-5.0) Hold Bello Top Tube Received (Received) Troponin T 0.010ug/L (0.0-0.011) Urine Color Yellow (YELLOW) Urine Appearance Hazy (CLEAR,HAZY) Urine pH 5.0 (5.0-8.0) Urine Specific [place] 1.025 (1.003-1.035) Urine Protein Negativemg/dL (NEG,TRACE) Urine Glucose (UA) Negativemg/dL (NEGATIVE) Urine Ketones Negativemg/dL (NEGATIVE) Urine Occult Blood Small (NEGATIVE) Urine Nitrite Negative (NEGATIVE) Urine Bilirubin Negative (NEGATIVE) Urine Urobilinogen Normalmg/dL (NORMAL) Urine Leukocyte Esterase Trace (NEGATIVE) Urine RBC 0-2/hpf (0-2) Urine WBC 11-50/hpf (0-5) Urine Epithelial Cells Moderate/hpf (NONE-MOD) Urine Crystals None seen (NONE SEEN) Urine Bacteria Few/hpf (NONE-FEW) Urine Hyaline Casts None/lpf (NONE) Urine Granular Casts None seen (NONE SEEN) Urine Waxy Casts None seen (NONE SEEN) Urine Red Blood Cell Casts None seen (NONE SEEN) Urine White Blood Cell Casts None seen (NONE SEEN) Urine Mucus Present (None Seen) Urine Trichomonas None seen (NONE SEEN) Urine Yeast None (NONE SEEN) Urinalysis Comment None Urine Culture Reflexed Indicated White Blood Count 8.8th/mm3 (3.8-10.1) Red Blood Count 4.60mil/mm3 (3.90-5.20) Hemoglobin 12.8g/dL (12.0-15.6) Hematocrit 39.0% (35.0-46.0) Mean Corpuscular Volume 84.8fL (81-100) Mean Corpuscular Hemoglobin 27.8pg (27.0-35.0) Mean Corpuscular Hemoglobin Concent 32.8% (32.0-37.0) Red Cell Distribution Width 14.3% (12.3-15.4) Platelet Count 226bil/L (150-400) Neutrophils (%) (Auto) 89.2% (40-74) Lymphocytes (%) (Auto) 6.8% (14-46) Monocytes (%) (Auto) 3.9% (4-12) Eosinophils (%) (Auto) 0% (0-5) Basophils (%) (Auto) 0% (0-3) Erythrocyte Sedimentation Rate 18mm/hr (0-40) Sodium Level 138mEq/L (134-144) Potassium Level 4.5mEq/L (3.5-5.2) Chloride Level 101mEq/L (97-108) Carbon Dioxide Level 23mmol/L (18-29) Blood Urea Nitrogen 14mg/dL (8-27) Creatinine 0.65mg/dL (0.57-1.00) Estimat Glomerular Filtration Rate 128mL/min (>59) Glucose Level 163mg/dL (60-99) Calcium Level 9.3mg/dL (8.5-10.1) C-Reactive Protein 21.6mg/dL (0.0-0.5) Discharge Medications Discharge Medications Cholecalciferol (Vitamin D3) (Vitamin D) 1,000 Unit Tablet 2,000 UNITS PO DAILY (Reported) Colchicine (Colcrys) 0.6 Mg Tablet 0.6 MG PO BID Prescribed by: GINNY LITTLE MD Cyanocobalamin (Vitamin B-12) (Vitamin B-12) 2,000 Mcg Tablet 2,000 MCG PO DAILY (Reported) Meloxicam (Meloxicam) 7.5 Mg Tablet 15 MG PO DAILY Prescribed by: GINNY LITTLE MD Prednisone (PredniSONE) 10 Mg Tablet 10 MG PO DIRECTED Prescribed by: GINNY LITTLE MD As needed Aspirin (Aspirin) 325 Mg Tablet 325 MG PO DIRECTED PRN PRN For Pain (Reported ) Ranitidine (Ranitidine) 75 Mg Tablet 75 MG PO DAILY PRN PRN For Dyspepsia or Heartburn (Reported) Additional med instructions Take meloxicam 2 tablets daily for pain control. This medication is similar to ibuprofen. Continue your ranitidine to minimize stomach irritation from pain medications. Take colchicine twice daily to reduce the inflammation around the heart. This medication may cause diarrhea. If you develop intolerable loose stools then you may reduce this to once per day and contact Dr. Phipps for guidance. Take prednisone 10 mg tablets according the following schedule: 4 tablets per day 3 days, then 3 tablets per day 4 days, then 2 tablets per day for 1 week, then 1 tablet per day for 2 weeks. Followup Plan Discharge Diet: No restrictions Discharge Activity: No restrictions, Other (activity as tolerated according to chest discomfort) Patient Instructions Your episodes of feeling lightheaded do not seem to be due to any heart rhythm problem. Your pacemaker is functioning normally. There is no excessive fluid accumulating around your heart. You should expect to feel some discomfort as the inflammation around your heart resolves in coming weeks. Follow-up Provider: Dio Phipps MD Follow-up with PCP in: 1 week (contact Dr. Phipps's office for a follow-up appointment) Time spent 35 min copies to: Dio Phipps MD, Jeffrey W MD Oct 29, 2016 14:21
== END 2016-10-29 15:55 | disposition home or self-care (01) ==
LOC: SED 04:15 → PCC 14:39
PROVIDERS: ADMIT Internal Medicine; ATTEND Internal Medicine
DX: I30.9 Acute pericarditis, unspecified (principal); I49.5 Sick sinus syndrome; Z95.0 Presence of cardiac pacemaker; Z72.0 Tobacco use; K20.9 Esophagitis, unspecified; R55 Syncope and collapse
CPT/HCPCS: 36415; 71010; 71275; 80048; 80053; 81000; 83735; 83880; 84484; 85025; 85378; 85651; 86140; 87086; 87088; 93005; 96361; 96374; 96375; 99285; C8924; G0378; J1170; J1644; J2270; J2405; J3010; Q9967